=== PATIENT | female | born 1935 | race Caucasian/White ===

== ENCOUNTER → 2016-05-17 | Outpatient (CLI) | payer OTHER ==
--- NOTE | 2016-05-17 21:17 | DI ---
RIGHT HIP, 05/17/2016 1:26 PM: Clinical History: Right hip pain. Previous Exam: None at this facility. 2 views are submitted. There is no acute soft tissue, osseous, or joint abnormality. Reading: Normal right hip exam.
--- NOTE | 2016-05-17 21:17 | DI ---
AP PELVIS and LEFT HIP, 05/17/2016 1:26 PM: Clinical History: Left hip pain. Previous Exam: None at this facility. There is no soft tissue abnormality. The bony structures of the pelvis are normal. 2 views of the lef t hip are normal. Readin. Normal left hip exam. 2. The AP pelvis view is unremarkable.
--- NOTE | 2016-05-17 21:24 | DI ---
LUMBAR SPINE SERIES, 05/17/2016 1:26 PM: Clinical History: Bilateral low back pain without sciatica. Previous Exam: 01/07/2015. Upright AP and lateral views are submitted. The vertebral bodies are of normal height and size. The p atient is status post anterior and posterior fusions at L5-S1. There is a laminectomy at L5. The ante rior fusion is solid. Posterior fusion is performed with metallic struts transfixed with pedicle scre ws between L5 and S1. Severe disc space narrowing is present at L2-3 through L4-5. There is a grade 1 reverse spondylolisthesis at L3-4. The pedicles are normal. Arthritic changes are present in the apo physeal joints at L3-4 and L4-5. There is a lucency with sclerosis through the area of the pedicle of L3 on the lateral projection. A pars interarticularis defect that has developed since the last exam cannot be excluded. Degenerative changes are present in both sacroiliac joints. There is osteoporosis . The abdominal aorta is heavily calcified but has a normal caliber. Readin. Status post anterior and posterior fusions at L5-S1 with an L5 laminectomy. The anterior fusion i s solid. 2. Severe disc space narrowing from L2-3 through L4-5. 3. There is a grade 1 reverse spondylolisthesis at L3-4. A lucency is present in the region of the p ars interarticularis seen on the lateral view at the level of L3. This lucency is bounded by scleroti c margins in the bone and a pars defect at this level cannot be excluded. If further evaluation is re quired, consider a CT lumbar spine scan. 4. Osteoporosis.
== END ==
LOC: ORTHO 14:06
PROVIDERS: ATTEND Orthopaedic Surgery
DX: M25.552 Pain in left hip (principal); M25.551 Pain in right hip; M54.5 Low back pain; M48.06 Spinal stenosis, lumbar region; M43.16 Spondylolisthesis, lumbar region; Z98.1 Arthrodesis status
CPT/HCPCS: 72100; 73502

== ENCOUNTER → 2016-06-09 | Outpatient (CLI) | payer OTHER ==
[2016-06-09 13:31] LABS: HEMOGLOBIN A1C 6.77 % (4.2-6.0); MEAN BLOOD GLUCOSE (CALC) 139.441 mg/dL
== END ==
LOC: LAB 12:58
PROVIDERS: ATTEND Student in an Organized Health Care Education/Training Program
DX: E11.9 Type 2 diabetes mellitus without complications (principal)
CPT/HCPCS: 36415; 83036

== ENCOUNTER → 2016-06-14 | Outpatient (CLI) | payer OTHER | LOC: MMPC 09:00 | PROVIDERS: ATTEND Student in an Organized Health Care Education/Training Program | DX: E11.9 Type 2 diabetes mellitus without complications (principal) | CPT/HCPCS: 99212; G0463 ==

== ENCOUNTER → 2016-06-18 | Outpatient (CLI) | payer OTHER ==
--- NOTE | 2016-06-18 13:02 | DI ---
MRI LUMBAR SPINE SCAN WITHOUT IV CONTRAST, 06/18/2016 10:37 AM: Clinical History: Lumbar spondylosis. Previous Exam: 01/07/2015. Technique: Sagittal and axial T2 weighted; sagittal T1 weighted and T2 STIR; and axial PD. The vertebral bodies are of normal height and size. The patient is status post anterior and posterior fusions at L5-S1. Posterior fusions are accomplished with metallic struts transfixed with pedicle sc rews between L5 and S1. Severe disc space narrowing is present at L2-3 and L3-4 with a grade 1 revers e spondylolisthesis at L3-4. There is also moderate disc space narrowing at L4-5. The lumbar disc spa dante show desiccation change. The cord terminates at L1, and the conus medullaris is normal. The T9-10 and T10-11 disc spaces are normal. T11-12 has a circumferentially bulging but not herniated disc wit hout canal or neural foraminal stenosis. The T12-L1 disc space is normal. L1-2 has a mild circumferen tially bulging but not herniated disc without canal or neural foraminal stenosis. There is a more pro minent circumferentially bulging but not herniated disc without canal stenosis at L2-3 and there is m ild neural foraminal stenosis bilaterally but the nerve roots still exit appropriately. L3-4 has a gr derek 1 reverse spondylolisthesis with a circumferentially bulging but not herniated disc. There is lef t neural foraminal stenosis without canal or right neural foraminal stenosis. There is a 6 x 6 x 10 m m cyst arising from the right L4-5 apophyseal joint and this is causing displacement of the thecal sa c from right to left. This also has the potential to cause impingement on the right L4 nerve root bef ore it exits from the right L4-5 neural foramen. L4-5 has spinal canal stenosis secondary to a circum ferentially bulging but not herniated disc and hypertrophic changes of the apophyseal joints and liga mentum flavum, particularly on the right side. There is bilateral neural foraminal stenosis but the n erve still exit appropriately. L5-S1 shows no canal or neural foraminal stenosis. The in tear fusion appears solid. Readin. There is severe is bilateral canal stenosis at L4-5 secondary to hypertrophic changes of the apop hyseal joints and ligamentum flavum and a circumferentially bulging but not herniated disc. There is no significant neural foraminal stenosis. Immediately superior to the disc space is a right synovial cyst or ganglion arising from the right L4-5 apophyseal joint and this measures 6 x 6 x 10 mm. This c an potentially cause impingement on the right L4 nerve root before it enters into the right L4-5 neur al foramen. 2. There are bulging but not herniated discs without canal or significant neural foraminal stenosis at T11-12, L1-2, and L3-4. 3. Status post L5 laminectomy with anterior and posterior fusions at L5-S1. The anterior fusion appe ars solid. There is no canal or neural foraminal stenosis. 4. The T9-10, T10-11, and T12-L1 disc space are normal.
--- NOTE | 2016-06-18 13:57 | DI ---
LUMBAR SPINE SERIES, 06/18/2016 11:06 AM: Clinical History: Lumbar spondylosis. Previous Exam: 05/17/2016. Upright lateral flexion and extension views are submitted. The vertebral bodies are of normal height and size. The patient is status post anterior and posterior fusion at L5-S1. Posterior fusion is acco mplished with metallic struts transfixed with pedicle screws between L5 and S1. There is severe disc space narrowing at L2-3 through L4-5. There is a grade 1 reverse spondylolisthesis at L3-4 with scler osis at the respective endplates. No instability is noted with flexion and extension maneuvers. The a bdominal aorta is heavily calcified but has a normal caliber. Readin. Severe disc space narrowing is present from L2-3 through L4-5. Status post anterior and posterior fusions at L5-S1. 2. There is a grade 1 reverse spondylolisthesis at L3-4. No instability is noted with flexion and ex tension maneuvers.
== END ==
LOC: MRI 10:33
PROVIDERS: ATTEND Neurological Surgery
DX: M47.816 Spondylosis without myelopathy or radiculopathy, lumbar region (principal); M43.16 Spondylolisthesis, lumbar region; M51.36 Other intervertebral disc degeneration, lumbar region
CPT/HCPCS: 72100; 72148

== ENCOUNTER → 2016-08-30 | Outpatient (CLI) | payer OTHER ==
[2016-08-30 09:43] LABS: HEMOGLOBIN A1C 6.71 % (4.2-6.0)
[2016-08-30 16:12] LABS: CALCIUM 9.5 mg/dL (8.7-10.7); CHOL/HDL RATIO 3.06 RATIO (0-4.0); LDL CHOLESTEROL,CALCULATED 43.8 mg/dL; MAGNESIUM 1.6 mg/dL (1.6-2.4)
== END ==
LOC: LAB 09:01
PROVIDERS: ATTEND Student in an Organized Health Care Education/Training Program
DX: E11.9 Type 2 diabetes mellitus without complications (principal); E78.5 Hyperlipidemia, unspecified; I10 Essential (primary) hypertension; M81.0 Age-related osteoporosis without current pathological fracture
CPT/HCPCS: 36415; 80048; 80061; 83036; 83735; 84100

== ENCOUNTER → 2016-09-20 | Outpatient (CLI) | payer OTHER | LOC: MMPC 09:00 | PROVIDERS: ATTEND Student in an Organized Health Care Education/Training Program | DX: M81.0 Age-related osteoporosis without current pathological fracture (principal) | CPT/HCPCS: G0463; J0897 ==

== ENCOUNTER → 2016-09-21 | Outpatient (CLI) | payer OTHER ==
[2016-09-21 11:07] LABS: BASOPHILS # (AUTO) 0.04 10*3/UL; EOSINOPHILS # (AUTO) 0.32 10*3/UL; EOSINOPHILS % (AUTO) 7.8 % (0-8); HEMATOCRIT 41.7 % (37.0-47.0); HEMOGLOBIN 14.3 g/dL (12.0-16.0); LYMPHOCYTES # (AUTO) 1.16 10*3/uL; MEAN CORPUSCULAR HEMOGLOBIN 28.9 PG (27-31); MEAN CORPUSCULAR HGB CONC 34.3 g/dL (33-37); MEAN CORPUSCULAR VOLUME 84.4 FL (81-99); MEAN PLATELET VOLUME 9.7 FL (7.4-12.2); MONOCYTES # (AUTO) 0.61 10*3/UL (0.3-0.8); MONOCYTES % (AUTO) 14.9 % (5-15); NEUTROPHILS # (AUTO) 1.95 10*3/UL; NEUTROPHILS % (AUTO) 47.5 % (50-80); RED BLOOD COUNT 4.94 10^6/uL (4.20-5.40)
[2016-09-21 11:08] LABS: PLATELET MORPHOLOGY COMMENT NORMAL MORPHOLOGY (NORM); RBC MORPHOLOGY COMMENT NORMAL MORPHOLOGY (NORM); WBC MORPHOLOGY COMMENT NORMAL MORPHOLOGY (NORM)
--- NOTE | 2016-09-21 15:56 | EKG ---
[address] [address] Measurements Intervals [place] Rate: 81 P: 58 [place]: 168 QRS: 0 QRSD: 86 T: 22 QT: 358 QTc: 395 Interpretive Statements SINUS RHYTHM Compared to ECG 10/22/2014 17:37:43 No significant changes Electronically Signed On 09-22-16 07:39:56 MDT by Juliano Pickens MD [email or web address]
== END ==
LOC: LAB 10:45
PROVIDERS: ATTEND Orthopaedic Surgery
DX: M43.16 Spondylolisthesis, lumbar region (principal)
CPT/HCPCS: 36415; 85025; 85610; 85730; 87641; 93005; 93010

== ENCOUNTER → 2016-09-22 | Outpatient (CLI) | payer OTHER | LOC: MMPC 09:00 | DX: K12.2 Cellulitis and abscess of mouth (principal); I88.9 Nonspecific lymphadenitis, unspecified | CPT/HCPCS: 99212; G0463 ==

== ENCOUNTER → 2016-11-29 | Outpatient (CLI) | payer OTHER ==
[2016-11-29 10:22] LABS: HEMOGLOBIN A1C 6.84 % (4.2-6.0)
[2016-11-29 10:38] LABS: CALCIUM 9.4 mg/dL (8.7-10.7); MAGNESIUM 1.5 mg/dL (1.6-2.4)
== END ==
LOC: LAB 09:31
PROVIDERS: ATTEND Student in an Organized Health Care Education/Training Program
DX: E11.9 Type 2 diabetes mellitus without complications (principal)
CPT/HCPCS: 36415; 80048; 83036; 83735; 84100

== ENCOUNTER 2017-11-29 11:02 | Observation (INO) ==
[2017-11-29] MEDS ORDERED: fentaNYL Inj 100 MCG/2 ML VIAL IVP ONE (11:21)
[2017-11-29] MEDS ORDERED: ONDANSETRON 4 MG/2 ML VIAL IVP ONE (11:21)
[2017-11-29] MEDS ORDERED: Sodium Chloride 0.9% 1,000 ML PRIMARY IV ONE (11:22)
--- NOTE | 2017-11-29 11:23 | PDOC ---
Abdomen/Flank HPI - General Chief Complaint: Neck / Back Complaint Stated Complaint: LOW ABD/ HIP/ AND DOWN PAIN Date Seen by Provider: 11/29/17 Time Seen by Provider: 11:23 Source: POSITIVE: Patient Exam Limitations: POSITIVE: No limitations Nurse's Notes Reviewed & Considered: Yes - History of Present Illness Initial Comments: Patient is an 82-year-old female who presents to the emergency department with multiple complaints. 1 she has some chronic back pain with radiation and left hip. Reportedly has had back surgery in the past. She is also with Dr. Carmona. She is scheduled for an outpatient MRI for further characterization. Patient does have pain in the back. His chronic in nature. Somewhat worse last week or so. Dad said that she's been using acetaminophen as needed for pain. In addition she has developed abdominal discomfort. The been over the last 24 hours or so. Exacerbating factors. Has been associated with some nausea. Patient reports deep decreased flatus today. Denies diarrhea or constipation. No urinary symptoms. No fevers or chills. Body Location Affected: REPORTS: Head - Patient Home Medications Home Medications: Home Medications Lo-Dose Aspirin Ec 81 mg ORAL QD tab 04/22/11 Denosumab [Prolia] 60 mg SQ ONCE #1 11/09/11 Cholecalciferol (Vitamin D3) [Vitamin D3] 2,400 unit MC DAILY cap 04/27/12 Potassium Gluconate [Potassium] 99 mg PO DAILY unit 04/17/13 Multivit with Minerals/Lutein [Vision Plus Lutein Vitamin Tab] 1 ea PO DAILY tab 02/05/14 Acetaminophen [Tylenol] 1 tab PO BID tab 05/03/14 Simethicone [Gas-X] 125 mg PO BID PRN #60 cap 03/06/15 Loratadine [Claritin Tab] 1 tab PO DAILY #30 tab 06/03/15 Nitroglycerin 0.4 mg SL Q5M PRN PRN #30 tab.subl 06/03/15 Ranitidine HCl 75 mg PO DAILY #30 tab 06/03/15 Cider Vinegar [Apple Cider Vinegar] 600 mg PO DAILY tab 12/16/15 Magnesium Oxide 250 mg PO QD #30 tab 03/02/16 ibuprofen 200 mg tablet 400 mg PO Q4-6H PRN 02/28/17 metformin 1,000 mg tablet 1,000 mg PO BID #180 tab 04/04/17 metoprolol succinate ER 25 mg tablet,extended release 24 hr 1 tab PO DAILY #90 tab 08/03/17 amlodipine 10 mg tablet 10 mg PO QDAY #90 tab 08/30/17 rosuvastatin 5 mg tablet 5 mg PO QDAY #90 tab 08/30/17 gabapentin 300 mg capsule 300 mg PO TID #30 cap 10/25/17 hydrocodone 5 mg-acetaminophen 325 mg tablet 1 tab PO Q6-8H PRN #30 tab lisinopril 20 mg tablet 20 mg PO BID #180 tab 11/02/17 - Patient Allergies Allergies/Adverse Reactions: Allergies 3 Allergy/AdvReac Type Severity Reaction Status Date / Time propoxyphene napsylate Allergy Intermediate NAUSEA Verified 10/31/17 14:44 [From [facility]] Past Medical History - heen HEENT History: Glaucoma, Macular Degeneration, Cataracts, Hard of Hearing, Dentures/Partials Cardiovascular History: Hypertension, Hyperlipidemia Additional Cardiovasular History: HAD CARDIAC CATH THAT SHOWED NO OBSTRUCTION FOLLOWING EPISODE OF CHEST PAIN IN 03/2010. NEGATIVE LEXISCAN. (PER H&P) Respiratory History: Snoring Gastrointestinal History: GERD Additional Gastrointestinal History: HX OF ABDOMINAL PAIN/CONSTIPATION/ DIARRHEA. RECTAL BLEEDING Genitourinary History: Denies History Endocrine History: Type 2 Diabetes (oral) Musculoskeletal History: Arthritis, Back Pain, Limited ROM, Joint Pain Prosthesis or Implant: Yes (LOWER BACK 2 RODS, Left total shoulder) Additional Musculoskeletal History: SHOULDER PAIN Neurological History: Denies History Blood Disorders: Denies History Psychiatric History: Denies History History of Sexually Transmitted Diseases: No Cancer History: Denies History History of MDRO: No History of Other Communicable Diseases: No Alcohol Use: None In the Past 12 Months, Have Used or Abuse Any Substance: None Previous Surgical History: Yes Type / Date of Surgery: TOTAL LT SHOULDER (08/06/14)/APPY/BONNIE/COLONOSCOPY/ HYSTER WITH BSO X2/LEFT INGUINAL/LUMBAR FUSION/RIGHT KNEE SCOPE/BILAT RCT/SINUS SX/RIGHT KNEE SX/tonsillectomy Anesthesia Reactions: No Malignant Hyperthermia: No Significant Family History: Cancer, Diabetes, Hypertension Past Medical History Reviewed: Reviewed - No Changes ROS - Limitations ROS Limitations: No Limitations Constitution: DENIES: Chills, Fever Cardiovascular: REPORTS: Denies Cardiac Symptoms Respiratory: REPORTS: Denies Resp Symptoms Neurological: REPORTS: Denies Neuro Symptoms Gastrointestinal: REPORTS: Abdominal Pain, Nausea Endocrine: REPORTS: Denies Symptoms Musculoskeletal: REPORTS: Back Pain, Other (Left hip pain) Genitourinary: REPORTS: Denies Symptoms Eyes: REPORTS: Denies Symptoms ENT: REPORTS: Denies Symptoms Skin: REPORTS: Denies Skin Symptoms Lympathic: REPORTS: Denies Lympathic Symptoms Immunologic: POSITIVE: Denies Symptoms Psychiatric: POSITIVE: Denies Psych Symptoms Abdominal/Flank Pain PE - General Appearance General Appearance: POSITIVE: Alert, Cooperative, No Acute Distress - HEENT HEENT: POSITIVE: Head Inspection Nml, Eyes Inspection Nml, Ears Inspection Nml, Nose Inspection Nml - Neck Neck: POSITIVE: Normal Inspection - Respiratory Respiratory: POSITIVE: No Respiratory Distress, Breath Sounds Normal, Chest Non- Tender - Cardiovascular Cardiovascular: POSITIVE: Regular Rate and Rhythm, Heart Sounds Normal - Chest Chest: POSITIVE: Non Tender - Abdomen Additional Abdominal Details: There is some tenderness to palpation predominantly in the right lower quadrant no rebound or guarding. There is mild distention. Abdomen is tympanic to percussion. - Back Back: POSITIVE: Other (Mild tenderness to palpation of the back.) - Skin Skin: POSITIVE: Intact, Normal For Race, Warm, Dry - Extremities Additional Extremities Details: There is tenderness to palpation lateral aspect of the left hip. No gross deformity. Some mild pain with range of motion. - Neurological Neurological: POSITIVE: Affect Apporpriate, Oriented X3, Other (Strength and sensation equal in the lower extremities bilaterally. No focal deficit.) - Psychological Psychiatric: POSITIVE: Affect Appropriate Abdomen Progress - Results Reviewed by me Xrays/CTs/US Reviewed by me: Yes Lab Results Reviewed by Me: Yes CBC and BMP: 11/29/17 11:33 11/29/17 11:33 - Patient's Progress MDM / ED Course: Patient is an 82-year-old female who presents to the emergency department with abdominal pain and back pain. Differential diagnosis includes but is not limited to bowel obstruction, constipation, appendicitis, pyelonephritis, urinary tract infection. On examination she has no focal deficit in the lower extremities to suggest cord impingement. Her UA does not demonstrate infection. Laboratory studies demonstrate a mild glucose Abhinav of uncertain etiology. Patient's CT scan was obtained which showed straights no evidence of acute findings. An x-ray of her left hip was also obtained. Patient treated with fluids, pain medication, nausea medication. On reevaluation she was still uncomfortable to the point that she felt that she could not safely go home. I find no obvious etiology of her symptoms at this time I spoke with the hospitalist to admit patient for observation. Patient Care Time - Estimated PCT Patient Care Time (In Minutes): 40 Vital Signs - VS Reviewed Vital Signs Reviewed: Yes Discharge Clinical Impression: Acute exacerbation of chronic low back pain Abdominal pain Qualifiers: Abdominal location: right lower quadrant Qualified Code(s): R10.31 - Right lower quadrant pain Discharge Disposition: Admit to Observation Condition: Fair Follow Up With: MUSHTAQ FULLER [Primary Care Provider] - Date Decision to Admit to Inpatient: 11/29/17 Time Decision to Admit to Inpatient: 14:01
[2017-11-29 11:36] LABS: BASOPHILS # (AUTO) 0.03 10*3/UL; BASOPHILS % (AUTO) 0.7 % (0-1); EOSINOPHILS % (AUTO) 2.4 % (0-8); Hematocrit [HCT] 39.6 % (37.0-47.0); Hemoglobin [HGB] 13.7 g/dL (12.0-16.0); LYMPHOCYTES # (AUTO) 1.06 10*3/uL; MEAN CORPUSCULAR HEMOGLOBIN 26.6 PG (27-31); MEAN CORPUSCULAR HGB CONC 34.6 g/dL (33-37); MEAN CORPUSCULAR VOLUME 76.9 FL (81-99); MEAN PLATELET VOLUME 9.8 FL (7.4-12.2); MONOCYTES # (AUTO) 0.63 10*3/UL (0.3-0.8); NEUTROPHILS # (AUTO) 2.37 10*3/UL; NEUTROPHILS % (AUTO) 56.5 % (50-80); RED BLOOD COUNT 5.15 10^6/uL (4.20-5.40)
[2017-11-29] MEDS ORDERED: Sodium Chloride 0.9% 1,000 ML ONE (11:39)
[2017-11-29] MEDS ORDERED: ONDANSETRON 4 MG/2 ML VIAL ONE (11:39)
[2017-11-29] MEDS ORDERED: fentaNYL Inj 100 MCG/2 ML VIAL ONE (11:39)
[2017-11-29 11:45] LABS: BLOOD UREA NITROGEN 9 mg/dL (7-22); LIPASE 108 IU/L (23-300); SERUM ALBUMIN 4.5 g/dL (3.5-4.8)
[2017-11-29 11:47] LABS: PLATELET MORPHOLOGY COMMENT NORMAL MORPHOLOGY (NORM); RBC MORPHOLOGY COMMENT NORMAL MORPHOLOGY (NORM); WBC MORPHOLOGY COMMENT NORMAL MORPHOLOGY (NORM)
--- NOTE | 2017-11-29 12:54 | DI ---
AP PELVIS and LEFT HIP, 11/29/2017 11:22 AM: Clinical History: Left hip pain. Previous Exam: 12/13/2016. There is no soft tissue abnormality. The bony structures of the pelvis are normal. 2 views of the lef t hip show no acetabular over coverage. The femoral head is spherical without a dysplastic "bump". No fractures are identified. Readin. There is no fracture or dislocation. The joint spaces preserved. 2. The AP pelvis view is unremarkable.
--- NOTE | 2017-11-29 13:32 | DI ---
CT ABDOMEN SCAN WITH IV CONTRAST, 11/29/2017 11:21 AM : Clinical History: Abdominal pain. Previous Exam: 09/11/2015. Scans are performed from the lower lung bases through the liver and kidneys with IV contrast. 75 mL o f Isovue 300 was injected IV. No oral or rectal contrast was ordered. The lung bases are clear. The liver is normal. The gallbladder is grossly normal. There is no abnorma lity of the spleen, pancreas, and adrenal glands. Both kidneys are normal in size, shape, position an d contour. There is no hydronephrosis or hydroureter. No renal or ureteral calculi are present. There are no abnormal retrocrural or periaortic nodes. No ascites is present. READING: Normal CT abdomen scan. CT PELVIS SCAN WITH IV CONTRAST, 11/29/2017 11:21 AM: Clinical History: See above. Previous Exam: 09/11/2015. Scans are performed from just superior to the umbilicus to the symphysis pubis with IV contrast. This is the same bolus of contrast used for the CT scans of the abdomen. Scans through the lower abdomen and pelvis show no masses, enhancing lesions, or abnormal fluid colle ctions. There is no adenopathy. The appendix is not identified with certainty and may be surgically a bsent. There is no inflammatory mass either in the cecum or in the right lower quadrant. The small marbin wel, terminal ileum, and ileocecal valve are normal. The colon is also normal. There are no hernias. The patient is status post hysterectomy and bilateral salpingo-oophorectomy. READING: Normal CT scan of the pelvis with IV contrast.
[2017-11-29 13:42] LABS: BILIRUBIN,URINE NEGATIVE (NEG); CLARITY,URINE CLEAR (CLEAR); COLOR,URINE YELLOW (Y); GLUCOSE, URINE (UA) 100 mg/dL (NEG); OCCULT BLOOD,URINE NEGATIVE (NEG); PH,URINE 7.5 (5.0-8.5); PROTEIN,URINE NEGATIVE (NEG); UROBILINOGEN,URINE 0.2 EU/dL (0.2)
[2017-11-29 13:43] LABS: URINE SAMPLE TYPE CLEAN CATCH URINE
[2017-11-29] MEDS ORDERED: NITROGLYCERIN 0.4 MG SL TAB (BOTTLE OF 3) SL PRN (14:15)
[2017-11-29] MEDS ORDERED: LIDOCAINE W/ SODIUM BICARB 0.5 ML SYR SUBD PRN (14:15)
[2017-11-29] MEDS ORDERED: ONDANSETRON 4 MG/2 ML VIAL IVP PRN (14:15)
[2017-11-29 14:30] LABS: URINE SPECIFIC GRAVITY - MAN 1.024
--- NOTE | 2017-11-29 15:37 | PDOC ---
HPI - History of Present Illness History of Present Illness: Is a very nice 82-year-old female with the monks other things chronic back pain with some radiation to the left hip she had the back surgery with Dr. Carmona and was scheduled for an outpatient MRI of her back comes to the ER because of the last 2 or 3 days her pain has been debilitating with nausea and vomiting and unable to walk or move around. Her last stool was yesterday afternoon and CT scan abdomen and pelvis is unremarkable as well as UA. Past Medical History Medical History: Diabetes, hypertension, chronic back pain, atypical chest pain , hyperlipidemia, glaucoma, colon polyps, bilateral tinnitus, Surgical History: Appendectomy 1961, cataract extraction, cholecystectomy, colonoscopy in 2009 adenomatous polyp, hysterectomy in , laparoscopic cholecystectomy, left inguinal hernia, lumbar fusion, arthroscopickneesurgery on the right side, D&C x2, rotator cuff repair bilateral, sinus surgery, tonsillectomy, right knee surgery Family History: Reviewed an Not Pertinent Tobacco Use: Never Smoker In the Past 12 Months, Have Used or Abuse Any of the Following Substance: None Medication / Allergies Home Medications: Home Medications 3 Medication Instructions Recorded Confirmed Type Lo-Dose Aspirin Ec 81 mg ORAL QD tab 04/22/11 11/29/17 History Denosumab [Prolia] 60 mg SQ ONCE #1 11/09/11 11/29/17 History Cholecalciferol (Vitamin D3) 2,400 unit MC DAILY cap 04/27/12 11/29/17 History [Vitamin D3] Potassium Gluconate [Potassium] 99 mg PO DAILY unit 04/17/13 11/29/17 History Multivit with Minerals/Lutein 1 ea PO DAILY tab 02/05/14 11/29/17 History [Vision Plus Lutein Vitamin Tab] Acetaminophen [Tylenol] 1 tab PO BID tab 05/03/14 11/29/17 History Simethicone [Gas-X] 125 mg PO BID PRN #60 cap 03/06/15 11/29/17 History Loratadine [Claritin Tab] 1 tab PO DAILY #30 tab 06/03/15 11/29/17 History Nitroglycerin 0.4 mg SL Q5M PRN PRN #30 tab.subl 06/03/15 11/29/17 History Ranitidine HCl 75 mg PO DAILY #30 tab 06/03/15 11/29/17 History Cider Vinegar [Apple Cider Vinegar] 600 mg PO DAILY tab 12/16/15 11/29/17 History Magnesium Oxide 250 mg PO QD #30 tab 03/02/16 11/29/17 History ibuprofen 200 mg tablet 400 mg PO Q4-6H PRN 02/28/17 11/29/17 History metformin 1,000 mg tablet 1,000 mg PO BID #180 tab 04/04/17 11/29/17 Rx metoprolol succinate ER 25 mg 1 tab PO DAILY #90 tab 08/03/17 11/29/17 Rx tablet,extended release 24 hr amlodipine 10 mg tablet 10 mg PO QDAY #90 tab 08/30/17 11/29/17 Rx rosuvastatin 5 mg tablet 5 mg PO QDAY #90 tab 08/30/17 11/29/17 Rx gabapentin 300 mg capsule 300 mg PO TID #30 cap 10/25/17 11/29/17 Rx hydrocodone 5 mg-acetaminophen 325 1 tab PO Q6-8H PRN #30 tab 10/31/17 11/29/17 Rx mg tablet lisinopril 20 mg tablet 20 mg PO BID #180 tab 11/02/17 11/29/17 Rx Allergies/Adverse Reactions: Allergies 3 Allergy/AdvReac Type Severity Reaction Status Date / Time propoxyphene napsylate Allergy Intermediate NAUSEA Verified 11/29/17 14:35 [From [facility]] Review of Systems - Review of Systems All Systems: Reviewed & No Additional Complaints Except as Stated - Cardiovascular Cardiovascular: DENIES: Negative System Review, Chest Pain, Edema, Syncope, Palpitations, Orthopnea, Paroxysmal Nocturnal Dyspnea, Other, See HPI - Gastrointestinal Gastrointestinal / Abdominal: REPORTS: Nausea, Vomiting - Musculoskeletal Musculoskeletal: REPORTS: Back Pain, Joint Pain - Hips Exam - Vitals Vital Signs: Vital Signs Temperature 97.7 F Temperature Source Temporal Artery Scan Pulse Rate [Pulse Oximeter 77 Bilateral Radial] Respiratory Rate 18 Blood Pressure [Left Arm] 189/111 Pulse Ox 82 Oxygen Flow Rate 3 Oxygen Delivery Method Nasal Cannula Height 5 ft 2 in Weight 150 lb - General General Appearance: No Acute Distress, Cooperative - Eye Eye Exam: POSITIVE: Normal Appearance, PERRL, EOMI, No Scleral Icterus - Neck Neck Exam: Normal Inspection, Full ROM, No Tenderness, No Lymphadenopathy, No Thyromegaly, JVP is not Raised - Respiratory Respiratory Exam: POSITIVE: Clear to Auscultation - Bilaterally, Breathing Non Labored, Normal To Percussion, Normal to Percussion and Palpation - Cardiovascular Cardiovascular Exam: POSITIVE: RRR, No Murmur, No Clicks, No Gallops, No Rubs, PMI Non-Displaced - GI/Abdominal GI/Abdominal Exam: POSITIVE: Non Tender, Non Distended, Soft - Extremities Extremities Exam: POSITIVE: No Clubbing Present, No Edema Present, No Cyanosis Present Additional Extremities Exam Details: Left hip is somewhat painful when I push on it more as a posteriorly pain on the right hip - Back Back Exam: NEGATIVE: CVA Tenderness (L), CVA Tenderness (R) - Neurological Neurological Exam: POSITIVE: Alert, Oriented x 3, No Facial Droop, Speech Intact / Clear Results - Labs CBC and BMP: 11/29/17 11:33 11/29/17 11:33 Assessment and Plan - Patient Problems (1) Abdominal pain Current Visit: Yes Status: Acute Comment: I believe this is all referred pain from her back I will order an MRI of her lumbar spine and x-ray of her left hip will treat the pain with IV morphine will keep patient with clear liquids. Code(s): R10.9 - Unspecified abdominal pain Qualifiers: Abdominal location: right lower quadrant Qualified Code(s): R10.31 - Right lower quadrant pain (2) Acute exacerbation of chronic low back pain Current Visit: Yes Status: Acute Code(s): M54.5 - Low back pain; G89.29 - Other chronic pain
[2017-11-29] MEDS: HYDROcodone-APAP 5 MG -325 MG TABLET PO PRN ×2 (15:43→20:48)
[2017-11-29] MEDS: MORPHINE SULFATE 2 MG/1 ML IVP PRN (15:44)
[2017-11-29] MEDS: GABAPENTIN 300 MG CAPSULE PO SCH ×2 (15:44→20:49)
[2017-11-29] MEDS: ASPIRIN EC 81 MG TABLET PO SCH (15:44)
[2017-11-29] MEDS ORDERED: LIDOCAINE HCL 2 % 10 ML JELLY URO-JECT TOPICAL PRN (15:47)
--- NOTE | 2017-11-29 17:49 | DI ---
MRI LUMBAR SPINE SCAN WITHOUT IV CONTRAST, 11/29/2017 3:41 PM: Clinical History: Debilitating back pain. Previous fusion. Previous Exam: 06/18/2016. Technique: Sagittal and axial T2 weighted; sagittal T1 weighted and T2 STIR; and axial PD. The patient is status post anterior and posterior fusions at L2-3 through L5-S1 and laminectomies bet ween L2 and S1. Posterior fusions are performed with metallic struts transfixed with pedicle screws b etween L2 and L5. There is disc space narrowing at L1-2. Abnormally increased signal intensity is pre sent in all of L1 and the upper half of L2 indicating bone edema. There is a fracture off of the ante rior and inferior margin of L2 and there probably is motion at this level. The cord terminates at L1. The conus medullaris is normal. The disc spaces at T9-10 and T10-11 are normal. T11-12 and T12-L1 mcclendon ve circumferentially bulging but not herniated discs without canal or neural foraminal stenosis. L1-2 has a focal left anterior disc herniation that has migrated superiorly behind the body of L1. It is not associated with spinal canal stenosis with a disc fragment resides. There is spinal canal stenosi s at L1-2 secondary to hypertrophic changes of the apophyseal joints and ligamentum flavum and the re mainder of the disc that is bulging. There is no neural foraminal stenosis. L2-3 through L5-S1 show n o neural foraminal stenoses or canal stenosis. There is no clumping of the nerve roots to indicate ar achnoiditis. Although the anterior fusion level show loss of epidural fat anteriorly. These changes m ost likely are secondary to scar tissue formation but without IV contrast, this cannot be an absolute diagnosis. Readin. There is a fracture through the anterior and inferior margin of the body of L1 and there is edema throughout the entire body of L1 in the upper half of L2. These findings suggest there is motion at this level. There is also a left-sided focal disc fragment from L1 to that has migrated superiorly be hind the body of L1 and there is no canal stenosis with a disc fragment is situated. There is spinal canal stenosis at the L1-2 disc secondary to hypertrophic changes of the apophyseal joints and ligame ntum flavum as well as bulging of the remaining portions of the L1-2 disc. There is no neural foramin al stenosis. 2. Status post laminectomies from L2-S1 with anterior and posterior fusions from L2-3 through L5-S1. These levels show no canal or neural foraminal stenosis. There is no evidence of arachnoiditis.
--- NOTE | 2017-11-29 17:52 | DI ---
AP PELVIS and BILATERAL HIPS, 11/29/2017 3:42 PM : Clinical History: Hip pain. Previous Exam: AP pelvis and left hip from 11/19/2017. There is no soft tissue abnormality. The bony structures of the pelvis are normal. 2 views of each hi p are normal and show no evidence of femoroacetabular impingement. Reading: Normal AP pelvis and bilateral hip exam.
[2017-11-29] MEDS: LISINOPRIL 20 MG TABLET PO SCH (20:49)
[2017-11-30] MEDS: HYDROcodone-APAP 5 MG -325 MG TABLET PO PRN ×3 (04:12→16:25)
[2017-11-30 04:29] LABS: BASOPHILS # (AUTO) 0.03 10*3/UL; BASOPHILS % (AUTO) 0.5 % (0-1); EOSINOPHILS # (AUTO) 0.13 10*3/UL; EOSINOPHILS % (AUTO) 2.4 % (0-8); Hemoglobin [HGB] 12.4 g/dL (12.0-16.0); LYMPHOCYTES # (AUTO) 1.09 10*3/uL; MEAN CORPUSCULAR HEMOGLOBIN 26.3 PG (27-31); MEAN CORPUSCULAR HGB CONC 33.5 g/dL (33-37); MEAN CORPUSCULAR VOLUME 78.6 FL (81-99); MEAN PLATELET VOLUME 9.7 FL (7.4-12.2); MONOCYTES # (AUTO) 0.76 10*3/UL (0.3-0.8); MONOCYTES % (AUTO) 13.9 % (5-15); NEUTROPHILS # (AUTO) 3.44 10*3/UL; NEUTROPHILS % (AUTO) 62.9 % (50-80); RED BLOOD COUNT 4.71 10^6/uL (4.20-5.40)
[2017-11-30 04:40] LABS: BLOOD UREA NITROGEN 6 mg/dL (7-22); SERUM ALBUMIN 3.4 g/dL (3.5-4.8)
[2017-11-30 04:47] LABS: PLATELET MORPHOLOGY COMMENT NORMAL MORPHOLOGY (NORM); RBC MORPHOLOGY COMMENT NORMAL MORPHOLOGY (NORM); WBC MORPHOLOGY COMMENT NORMAL MORPHOLOGY (NORM)
[2017-11-30] MEDS ORDERED: Magnesium Sulfate 2gm (Premix) 2 GM/50 ML BAG IV ONE (08:32)
[2017-11-30] MEDS ORDERED: LORATADINE 10 MG TABLET PO SCH (09:00)
[2017-11-30] MEDS ORDERED: METOPROLOL SUCCINATE 25 MG SR 24H TABLET PO SCH (09:00)
[2017-11-30] MEDS ORDERED: CHOLECALCIFEROL MC SCH (09:00)
[2017-11-30] MEDS ORDERED: CHOLECALCIFEROL 1000 IU TABLET PO SCH (09:00)
[2017-11-30 09:12] VITALS: RESP 12; TEMP 96.8; O2SAT 92
[2017-11-30] MEDS: ASPIRIN EC 81 MG TABLET PO SCH (09:35)
[2017-11-30] MEDS: LISINOPRIL 20 MG TABLET PO SCH (09:35)
[2017-11-30] MEDS: GABAPENTIN 300 MG CAPSULE PO SCH ×2 (09:35→14:57)
[2017-11-30 12:48] VITALS: BP 132/63
[2017-11-30] MEDS: MORPHINE SULFATE 2 MG/1 ML IVP PRN (14:11)
--- NOTE | 2017-11-30 15:00 | DCSUMMARY ---
Hospitalization Summary Admit Date: 11/29/2017 Discharge Date: 11/30/17 Primary Diagnosis:: L1 fracture Hospital Course: This is an 82 YO female that presented with back and left hip pain. She was admitted, and the pain was exacerbated by any movement. A Trammell catheter had to be inserted. She denied any urinary or bowel incontinence. Extensive workup was done in terms of imaging with CT scan of the abdomen and pelvis, x- rays of the hip and x-rays of the pelvis that were all negative. An MRI scan was done of the lumbar spine and an L1 fracture was noted with a migratory pes as well as edema at L1 and L2. There was evidence of her prior fusions. Given the L1 fracture and fracturing above the level of her prior fusion, I spoke with Dr. Carmona's partner in [place], Dr. Garcia and he suggested a TLSO brace. We do not have the capability of doing that here so I'm sending the patient to [place] for further evaluation by Dr. Garcia and the hospitalist service there. I greatly appreciate their efforts to assist this patient with her situation. The patient is more than willing to go to [place]. She still complains of back pain. She states it hurts even just to move or roll over. The pain medications such as morphine have been helping. During the hospital stay, the patient had no problems with acute exacerbations of her chronic medical issues. She denies any chest pain or shortness breath. Assessment and Plan: 1. As per discharge assessments noted 2. Disposition: Patient is discharged to [facility] 3. Condition on discharge, stable and improved. 4. Diet: regular diet 5. Activities: As per [facility] 6. Follow-Up: 1. See primary provider in one week post discharge 2. 7. Medications at the Time of Discharge: 8. Time, care, counseling and coordination of care for this discharge is greater than 30 minutes. Exam - Vitals Vital Signs: Vital Signs Temperature 96.8 F Temperature Source Temporal Artery Scan Pulse Rate [Pulse Oximeter] 78 Pulse Rate [Pulse Oximeter 83 Bilateral Radial] Respiratory Rate 12 Blood Pressure [Right Arm] 126/70 Blood Pressure [Left Arm] 132/63 Pulse Ox 92 Oxygen Flow Rate 1 Oxygen Delivery Method Nasal Cannula Height 5 ft 2 in Weight 150 lb - General General Appearance: No Acute Distress, Cooperative - Head Head Exam: Normal Inspection, Normocephalic, Atraumatic - Eye Eye Exam: POSITIVE: No Scleral Icterus - ENT ENT Exam: POSITIVE: Mucous Membranes Moist - Respiratory Respiratory Exam: POSITIVE: Clear to Auscultation - Bilaterally, Breathing Non Labored - Cardiovascular Cardiovascular Exam: POSITIVE: RRR, No Murmur, No Clicks, No Gallops, No Rubs, No JVD - GI/Abdominal GI/Abdominal Exam: POSITIVE: Normal Bowel Sounds, Non Tender, Non Distended, Soft - Extremities Extremities Exam: POSITIVE: No Clubbing Present, No Edema Present, No Cyanosis Present - Neurological Neurological Exam: POSITIVE: Alert, Oriented x 3, No Facial Droop, Speech Intact / Clear, Moves All Extremities Equally - Psychiatric Psychiatric Exam: POSITIVE: Normal Affect, Normal Mood Data Peritnent Studies: Laboratory Results 11/29/17 11/30/17 11/30/17 Range/Units 14:15 04:17 04:17 WBC 5.47 (4.8-10.8) 10^3/uL RBC 4.71 (4.20-5.40) 10^6/uL Hgb 12.4 (12.0-16.0) g/dL Hct 37.0 (37.0-47.0) % MCV 78.6 L (81-99) FL MCH 26.3 L (27-31) PG MCHC 33.5 (33-37) g/dL RDW Std Deviation 42.0 (39-50) fL RDW Coeff of Balbir 14.9 H (11.5-14.5) % Plt Count 243 (140-350) 10*3/uL MPV 9.7 (7.4-12.2) FL Immature Gran % (Auto) 0.4 (0-5) % Neut % (Auto) 62.9 (50-80) % Lymph % (Auto) 19.9 (10-50) % [place] % (Auto) 13.9 (5-15) % Eos % (Auto) 2.4 (0-8) % Baso % (Auto) 0.5 (0-1) % Immature Gran # (Auto) 0.02 10*3/UL Neut # (Auto) 3.44 10*3/UL Lymph # (Auto) 1.09 10*3/uL [place] # (Auto) 0.76 (0.3-0.8) 10*3/UL Eos # (Auto) 0.13 10*3/UL Baso # (Auto) 0.03 10*3/UL WBC Morphology Comment Normal morphology (NORM) Plt Morphology Comment Normal morphology (NORM) RBC Morph Comment Normal morphology (NORM) Sodium 137 (135-145) meq/L Potassium 3.9 (3.8-5.2) meq/L Chloride 107 (98-112) meq/L Carbon Dioxide 23 (23-33) meq/L Anion Gap 7 (5-20) BUN 6 L (7-22) mg/dL Creatinine 0.4 L (0.50-1.20) mg/dL Estimated GFR Manager [facility] BUN/Creatinine Ratio 15.00 (6-20) Glucose 126 H (78-110) mg/dL Calculated Osmolality 283.0 (267-292) mOsm/kg Calcium 8.7 (8.7-10.7) mg/dL Magnesium 1.5 L (1.6-2.4) mg/dL Total Bilirubin 0.3 (0.3-1.2) mg/dL AST 19 (8-39) IU/L ALT 27 (9-52) IU/L Alkaline Phosphatase 60 (38-126) IU/L Total Protein 5.7 L (6.1-8.0) g/dL Albumin 3.4 L (3.5-4.8) g/dL Globulin 2.3 L (2.50-4.10) g/dL Albumin/Globulin Ratio 1.40 (1.3-2.0) mg/g Procedures: [address] [facility] [place] [address] PH: DD: [phone] FAX: [phone] ~DIAGNOSTIC IMAGING REPORT~ Patient: SHAHAB WEAVER : 1935 Sex: F Age: 82 Exam Name: MRI Lumbar Spine WO Contrast Exam Date: 11/29/17 Report # : [id number] CPT Code: 37753 EMR/MR #: [id number] Ordering: EDINSON HUSSEIN Admiting: EDINSON HUSSEIN MD. Primary: Dilip Das MD Attending: EDINSON HUSSEIN MD. Signed MRI LUMBAR SPINE SCAN WITHOUT IV CONTRAST, 11/29/2017 3:41 PM: Clinical History: Debilitating back pain. Previous fusion. Previous Exam: 06/18/2016. Technique: Sagittal and axial T2 weighted; sagittal T1 weighted and T2 STIR; and axial PD. The patient is status post anterior and posterior fusions at L2-3 through L5-S1 and laminectomies between L2 and S1. Posterior fusions are performed with metallic struts transfixed with pedicle screws between L2 and L5. There is disc space narrowing at L1-2. Abnormally increased signal intensity is present in all of L1 and the upper half of L2 indicating bone edema. There is a fracture off of the anterior and inferior margin of L2 and there probably is motion at this level. The cord terminates at L1. The conus medullaris is normal. The disc spaces at T9-10 and T10-11 are normal. T11-12 and T12-L1 have circumferentially bulging but not herniated discs without canal or neural foraminal stenosis. L1- 2 has a focal left anterior disc herniation that has migrated superiorly behind the body of L1. It is not associated with spinal canal stenosis with a disc fragment resides. There is spinal canal stenosis at L1-2 secondary to hypertrophic changes of the apophyseal joints and ligamentum flavum and the remainder of the disc that is bulging. There is no neural foraminal stenosis. L2 -3 through L5-S1 show no neural foraminal stenoses or canal stenosis. There is no clumping of the nerve roots to indicate arachnoiditis. Although the anterior fusion level show loss of epidural fat anteriorly. These changes most likely are secondary to scar tissue formation but without IV contrast, this cannot be an absolute diagnosis. Readin. There is a fracture through the anterior and inferior margin of the body of L1 and there is edema throughout the entire body of L1 in the upper half of L2. These findings suggest there is motion at this level. There is also a left- sided focal disc fragment from L1 to that has migrated superiorly behind the body of L1 and there is no canal stenosis with a disc fragment is situated. There is spinal canal stenosis at the L1-2 disc secondary to hypertrophic changes of the apophyseal joints and ligamentum flavum as well as bulging of the remaining portions of the L1-2 disc. There is no neural foraminal stenosis. 2. Status post laminectomies from L2-S1 with anterior and posterior fusions from L2-3 through L5-S1. These levels show no canal or neural foraminal stenosis. There is no evidence of arachnoiditis. Dictated By: 11/29/17 1738 FRANCISCO HERBERT MD. Signed By: 11/29/17 1746 FRANCISCO HERBERT MD. [address] [facility] [place] [address] PH: DD: [phone] FAX: [phone] ~DIAGNOSTIC IMAGING REPORT~ Patient: SHAHAB WEAVER : 1935 Sex: F Age: 82 Exam Name: CT Abdomen/Pelvis W Contrast Exam Date: 11/29/17 Report # : [id number] CPT Code: 06325 EMR/MR #: [id number] Ordering: Stanislaw Walker Admiting: Primary: Dilip Das MD Attending: Signed CT ABDOMEN SCAN WITH IV CONTRAST, 11/29/2017 11:21 AM : Clinical History: Abdominal pain. Previous Exam: 09/11/2015. Scans are performed from the lower lung bases through the liver and kidneys with IV contrast. 75 mL of Isovue 300 was injected IV. No oral or rectal contrast was ordered. The lung bases are clear. The liver is normal. The gallbladder is grossly normal. There is no abnormality of the spleen, pancreas, and adrenal glands. Both kidneys are normal in size, shape, position and contour. There is no hydronephrosis or hydroureter. No renal or ureteral calculi are present. There are no abnormal retrocrural or periaortic nodes. No ascites is present. READING: Normal CT abdomen scan. CT PELVIS SCAN WITH IV CONTRAST, 11/29/2017 11:21 AM: Clinical History: See above. Previous Exam: 09/11/2015. Scans are performed from just superior to the umbilicus to the symphysis pubis with IV contrast. This is the same bolus of contrast used for the CT scans of the abdomen. Scans through the lower abdomen and pelvis show no masses, enhancing lesions, or abnormal fluid collections. There is no adenopathy. The appendix is not identified with certainty and may be surgically absent. There is no inflammatory mass either in the cecum or in the right lower quadrant. The small bowel, terminal ileum, and ileocecal valve are normal. The colon is also normal. There are no hernias. The patient is status post hysterectomy and bilateral salpingo-oophorectomy. READING: Normal CT scan of the pelvis with IV contrast. Dictated By: 11/29/17 1324 FRANCISCO HERBERT MD. Signed By: 11/29/17 1332 FRANCISCO HERBERT MD. Patient Problems - Patient Problem List (1) Closed L1 vertebral fracture Current Visit: Yes Status: Acute Code(s): S32.019A - Unspecified fracture of first lumbar vertebra, initial encounter for closed fracture Qualifiers: Encounter type: initial encounter Fracture morphology: other fracture Qualified Code(s): S32.018A - Other fracture of first lumbar vertebra, initial encounter for closed fracture Category: Medical (2) Macular degeneration Current Visit: No Status: Chronic Code(s): H35.30 - Unspecified macular degeneration Qualifiers: Macular degeneration type: unspecified type Eye laterality: unspecified Qualified Code(s): H35.30 - Unspecified macular degeneration Category: Medical (3) Hyperlipidemia Current Visit: Yes Status: Chronic Onset Date: 08/03/11 Code(s): E78.5 - Hyperlipidemia, unspecified Qualifiers: Hyperlipidemia type: pure hypercholesterolemia Qualified Code(s): E78.00 - Pure hypercholesterolemia, unspecified; E78.0 - Pure hypercholesterolemia Category: Medical (4) Essential hypertension Current Visit: Yes Status: Chronic Onset Date: 03/17/12 Code(s): I10 - Essential (primary) hypertension Category: Medical (5) GERD (gastroesophageal reflux disease) Current Visit: Yes Status: Chronic Code(s): K21.9 - Gastro-esophageal reflux disease without esophagitis Category: Medical
== END 2017-11-30 16:32 | disposition short-term general hospital (02) ==
LOC: ER 11:02 → MED/SURG 11:02
PROVIDERS: ADMIT Internal Medicine; ATTEND Internal Medicine

== ENCOUNTER 2018-01-05 12:13 | Observation (INO) ==
[2018-01-05] MEDS ORDERED: Sodium Chloride 0.9% 1,000 ML PRIMARY IV ONE (12:21)
[2018-01-05 12:46] LABS: BASOPHILS # (AUTO) 0.02 10*3/UL; BASOPHILS % (AUTO) 0.3 % (0-1); EOSINOPHILS # (AUTO) 0.06 10*3/UL; EOSINOPHILS % (AUTO) 0.8 % (0-8); Hematocrit [HCT] 41.5 % (37.0-47.0); LYMPHOCYTES # (AUTO) 1.14 10*3/uL; MEAN CORPUSCULAR HEMOGLOBIN 26.5 PG (27-31); MEAN CORPUSCULAR HGB CONC 33.7 g/dL (33-37); MEAN CORPUSCULAR VOLUME 78.4 FL (81-99); MEAN PLATELET VOLUME 9.8 FL (7.4-12.2); MONOCYTES # (AUTO) 0.42 10*3/UL (0.3-0.8); MONOCYTES % (AUTO) 5.3 % (5-15); NEUTROPHILS # (AUTO) 6.29 10*3/UL; PLATELET MORPHOLOGY COMMENT NORMAL MORPHOLOGY (NORM); RBC MORPHOLOGY COMMENT NORMAL MORPHOLOGY (NORM); RED BLOOD COUNT 5.29 10^6/uL (4.20-5.40); WBC MORPHOLOGY COMMENT NORMAL MORPHOLOGY (NORM)
[2018-01-05] MEDS ORDERED: PANTOPRAZOLE IV 40 MG VIAL IVP ONE ×2 (12:46→18:27)
--- NOTE | 2018-01-05 12:46 | EKG ---
[address] [address] Measurements Intervals [place] Rate: 78 P: 85 AK: 193 QRS: -11 QRSD: 86 T: 19 QT: 369 QTc: 402 Interpretive Statements SINUS RHYTHM Compared to ECG 09/21/2016 10:57:17 No significant changes Electronically Signed On 01-06-18 10:30:37 MDT by Joshua Sanchez [email or web address]
--- NOTE | 2018-01-05 12:47 | PDOC ---
Nausea/Vomiting/Diarrhea HPI - General Chief Complaint: Nausea / Vomiting / Diarrhea Stated Complaint: nausea with pain meds Date Seen by Provider: 01/05/18 Time Seen by Provider: 12:30 Source: POSITIVE: Patient Exam Limitations: POSITIVE: No limitations Nurse's Notes Reviewed & Considered: Yes - History of Present Illness Initial Comments: The patient is an 82-year-old female who is brought to the emergency department from the clinic with complaints of nausea and vomiting. She was seen here in the emergency department yesterday with complaints of worsening low back pain. She has had 2 previous lumbar surgeries and is actually scheduled for a lumbar surgery per Dr. Carmona in [place] in early January. She had x-rays of her lumbar spine which showed no evidence of acute fracture. She was placed on hydrocodone. She took a dose last night and then again this morning at about 6 AM. Starting at about 9 AM she developed increased nausea and vomiting. She had presented to the clinic where they gave her Zofran however she continued to have nausea and vomiting and therefore was brought here to the emergency department. She states that she does have some pain that radiates from her lower back into the lower abdomen. She also has some pain in the epigastric region. She also states that her abdomen feels more bloated than usual. She denies any urinary symptoms or change in bowel movements. Her last bowel movement was yesterday afternoon and was normal. She has had previous cholecystectomy, appendectomy, hysterectomy and previous hernia repair. She has taken hydrocodone in the past without any problems with nausea or vomiting. Been taking increased amounts of ibuprofen recently secondary to her increased lower back pain. - Patient Home Medications Home Medications: Home Medications Lo-Dose Aspirin Ec 81 mg ORAL QD tab 04/22/11 Denosumab [Prolia] 60 mg SQ ONCE #1 11/09/11 Cholecalciferol (Vitamin D3) [Vitamin D3] 2,400 unit MC DAILY cap 04/27/12 Potassium Gluconate [Potassium] 99 mg PO DAILY unit 04/17/13 Multivit with Minerals/Lutein [Vision Plus Lutein Vitamin Tab] 1 ea PO DAILY tab 02/05/14 Acetaminophen [Tylenol] 1 tab PO BID tab 05/03/14 Simethicone [Gas-X] 125 mg PO BID PRN #60 cap 03/06/15 Loratadine [Claritin Tab] 1 tab PO DAILY #30 tab 06/03/15 Nitroglycerin 0.4 mg SL Q5M PRN PRN #30 tab.subl 06/03/15 Ranitidine HCl 75 mg PO DAILY #30 tab 06/03/15 Cider Vinegar [Apple Cider Vinegar] 600 mg PO DAILY tab 12/16/15 Magnesium Oxide 250 mg PO QD #30 tab 03/02/16 ibuprofen 200 mg tablet 400 mg PO Q4-6H PRN 02/28/17 metformin 1,000 mg tablet 1,000 mg PO BID #180 tab 04/04/17 metoprolol succinate ER 25 mg tablet,extended release 24 hr 1 tab PO DAILY #90 tab 08/03/17 amlodipine 10 mg tablet 10 mg PO QDAY #90 tab 08/30/17 rosuvastatin 5 mg tablet 5 mg PO QDAY #90 tab 08/30/17 gabapentin 300 mg capsule 300 mg PO TID #30 cap 10/25/17 hydrocodone 5 mg-acetaminophen 325 mg tablet 1 tab PO Q6-8H PRN #30 tab lisinopril 20 mg tablet 20 mg PO BID #180 tab 11/02/17 - Patient Allergies Allergies/Adverse Reactions: Allergies 3 Allergy/AdvReac Type Severity Reaction Status Date / Time propoxyphene napsylate Allergy Intermediate NAUSEA Verified 01/05/18 12:14 [From [facility]] Past Medical History - heen HEENT History: Glaucoma, Macular Degeneration, Cataracts, Hard of Hearing, Dentures/Partials Additional HEENT History: full upper and lower Cardiovascular History: Hypertension, Hyperlipidemia Additional Cardiovasular History: HAD CARDIAC CATH THAT SHOWED NO OBSTRUCTION FOLLOWING EPISODE OF CHEST PAIN IN 03/2010. NEGATIVE LEXISCAN. (PER H&P) Respiratory History: Snoring Gastrointestinal History: GERD Additional Gastrointestinal History: HX OF ABDOMINAL PAIN/CONSTIPATION/ DIARRHEA. RECTAL BLEEDING Genitourinary History: Denies History Endocrine History: Type 2 Diabetes (oral) Musculoskeletal History: Arthritis, Back Pain, Limited ROM, Joint Pain Prosthesis or Implant: Yes (LOWER BACK 2 RODS, Left total shoulder) Additional Musculoskeletal History: SHOULDER PAIN Neurological History: Denies History Blood Disorders: Denies History Psychiatric History: Denies History History of Sexually Transmitted Diseases: No Female Reproductive History: Hysterectomy LMP: ? Cancer History: Denies History In Past Year Been Physically Harmed or Verbally Threatened: No History of MDRO: No History of Other Communicable Diseases: No Tobacco Use: Never Smoker Alcohol Use: None In the Past 12 Months, Have Used or Abuse Any Substance: None Previous Surgical History: Yes Type / Date of Surgery: TOTAL LT SHOULDER (08/06/14)/APPY/BONNIE/COLONOSCOPY/ HYSTER WITH BSO X2/LEFT INGUINAL/LUMBAR FUSION/RIGHT KNEE SCOPE/BILAT RCT/SINUS SX/RIGHT KNEE SX/tonsillectomy Anesthesia Reactions: No Malignant Hyperthermia: No Significant Family History: Cancer, Diabetes, Hypertension Past Medical History Reviewed: Reviewed - No Changes ROS - Limitations ROS Limitations: No Limitations Constitution: DENIES: Chills, Fever Cardiovascular: DENIES: Chest Pain Respiratory: DENIES: Shortness Of Breath Neurological: REPORTS: Denies Neuro Symptoms Gastrointestinal: REPORTS: Abdominal Pain, Nausea, Vomitting. DENIES: Diarrhea , Black Stools, Bloody Stools Musculoskeletal: REPORTS: Back Pain Genitourinary: DENIES: Dysuria, Hematuria, Difficulty Urinating Eyes: REPORTS: Denies Symptoms ENT: REPORTS: Denies Symptoms Skin: DENIES: Rash Nausea/Vomiting/Diarrhea Exam - General Appearance General Appearance: POSITIVE: Alert, Cooperative, No Acute Distress - HEENT HEENT: POSITIVE: Head Inspection Nml, Eyes Inspection Nml, Ears Inspection Nml, Nose Inspection Nml, Pharynx Inspect. Nml - Neck Neck: POSITIVE: Supple. NEGATIVE: Lymphadenopathy - Respiratory Respiratory: POSITIVE: No Respiratory Distress, Breath Sounds Normal - Cardiovascular Cardiovascular: POSITIVE: Regular Rate and Rhythm, Heart Sounds Normal Peripheral Pulses: Dorsalis-pedis (R): 2+, Dorsalis-pedis (L): 2+ - Abdomen Additional Abdominal Details: Her abdomen is distended. She does have bowel sounds. She does have tenderness in the epigastric region as well as some tenderness in the lower abdomen bilaterally, no palpable mass. - Skin Skin: POSITIVE: Intact, No Rash - Extremities Extremity: Normal ROM: (All Extremities), Normal Inspection: (All Extremities) - Neurological / Psychological Neurological: POSITIVE: Oriented X3, Other (No focal neurologic deficits) N/V/D Progress - Results Reviewed by me Xrays/CTs/US Reviewed by me: Yes Discussed with Radiologist: Yes Radiology Findings: CT scan of the abdomen and pelvis with IV contrast shows no acute findings per radiologist. Lab Results Reviewed by Me: Yes CBC and BMP: 01/05/18 12:40 01/05/18 12:40 Lab Results:: Laboratory Results 3 01/05/18 01/05/18 01/05/18 12:40 12:40 12:40 WBC 7.95 RBC 5.29 Hgb 14.0 Hct 41.5 MCV 78.4 L MCH 26.5 L MCHC 33.7 RDW Std Deviation 41.9 RDW Coeff of Balbir 14.7 H Plt Count 264 MPV 9.8 Immature Gran % (Auto) 0.3 Neut % (Auto) 79.0 Lymph % (Auto) 14.3 [place] % (Auto) 5.3 Eos % (Auto) 0.8 Baso % (Auto) 0.3 Immature Gran # (Auto) 0.02 Neut # (Auto) 6.29 Lymph # (Auto) 1.14 [place] # (Auto) 0.42 Eos # (Auto) 0.06 Baso # (Auto) 0.02 WBC Morphology Comment Normal morphology Plt Morphology Comment Normal morphology RBC Morph Comment Normal morphology Sodium 133 L Potassium 4.4 Chloride 100 Carbon Dioxide 25 Anion Gap 8 BUN 13 Creatinine 0.5 BUN/Creatinine Ratio 26.00 H Glucose 211 H Calculated Osmolality 281.0 Calcium 9.8 Total Bilirubin 0.4 AST 26 ALT 26 Alkaline Phosphatase 94 Troponin I < 0.012 C-Reactive Protein 0.6 Total Protein 7.8 Albumin 4.8 Globulin 3.0 Albumin/Globulin Ratio 1.60 Amylase 128 H Lipase 133 - Patient's Progress MDM / ED Course: An IV was established and the patient received 1 L bolus of normal saline as well as Protonix 40 mg IV. Her nausea is improved however she continues to have significant lower back pain. She received morphine 2 mg IV. Her blood work is all essentially unremarkable with normal white count and minimally elevated amylase. CT scan of the abdomen and pelvis shows no acute findings per radiologist. Findings were discussed with the patient. The patient still feels quite miserable and is concerned about going home. At this point her increased vomiting and epigastric abdominal pain and bloating is most likely secondary to gastritis or ulcer from recent NSAID use. She has significant lower back pain with history of previous surgery and is scheduled for surgery on her lower back in early January. I did discuss the patient with Dr. Hair and he has agreed to admit the patient for further care. - Consult Counseled: POSITIVE: Patient, RE: Lab Results, RE: Radiology Results, RE: DX, RE : Need for F/U Patient Care Time - Estimated PCT Patient Care Time (In Minutes): 30 Vital Signs - Recent Vital Signs Vital Signs: Vital Signs (Last 8 hours) Temp Pulse Resp BP Pulse Ox 01/05/18 12:25 97.7 F 78 16 153/90 92 - VS Reviewed Vital Signs Reviewed: Yes Discharge Clinical Impression: Abdominal pain, Vomiting, Gastritis, Low back pain, Dehydration Discharge Disposition: Admit to Observation Condition: Fair Follow Up With: Dilip Das [Primary Care Provider] -
[2018-01-05 12:58] LABS: BLOOD UREA NITROGEN 13 mg/dL (7-22); LIPASE 133 IU/L (23-300); SERUM ALBUMIN 4.8 g/dL (3.5-4.8)
--- NOTE | 2018-01-05 13:46 | DI ---
CT ABDOMEN SCAN WITH IV CONTRAST, 01/05/2018 12:23 PM : Clinical History: Abdominal pain. Low back pain. Vomiting. Previous Exam: 11/29/2017. Scans are performed from the lower lung bases through the liver and kidneys with IV contrast. 75 mL o f Isovue 300 was injected IV. Volumen oral enterography contrast was administered. Atelectasis is present in both lung bases. The liver is normal. The patient is status post cholecyste ctomy and the common bile duct measures 6 mm. There is no abnormality of the spleen, pancreas, and ad renal glands. Both kidneys are normal in size, shape, position and contour. There is no hydronephrosi s or hydroureter. No renal or ureteral calculi are present. There are no abnormal retrocrural or vania aortic nodes. No ascites is present. READING: Normal CT abdomen scan. There has been no significant interval change. CT PELVIS SCAN WITH IV CONTRAST, 01/05/2018 12:23 PM: Clinical History: See above. Previous Exam: 11/29/2017 Scans are performed from just superior to the umbilicus to the symphysis pubis with IV contrast. This is the same bolus of contrast used for the CT scans of the abdomen. Scans through the lower abdomen and pelvis show no masses, enhancing lesions, or abnormal fluid colle ctions. There is no adenopathy. The appendix is not identified with certainty and may be surgically a bsent, but there is no inflammatory mass either in the cecum or in the right lower quadrant. The smal l bowel, terminal ileum, and ileocecal valve are normal. The colon is also normal. There are no herni as. The patient is status post hysterectomy and bilateral salpingo-oophorectomy. READING: Normal CT scan of the pelvis with IV contrast. There has been no significant interval change.
[2018-01-05] MEDS ORDERED: MORPHINE SULFATE 2 MG/1 ML IVP ONE (14:02)
[2018-01-05 14:45] LABS: BILIRUBIN,URINE NEGATIVE (NEG); CLARITY,URINE CLEAR (CLEAR); COLOR,URINE YELLOW (Y); GLUCOSE, URINE (UA) 100 mg/dL (NEG); OCCULT BLOOD,URINE NEGATIVE (NEG); PROTEIN,URINE TRACE mg/dl (NEG); UROBILINOGEN,URINE 0.2 EU/dL (0.2)
[2018-01-05 14:50] LABS: SQUAMOUS EPITHELIAL CELL,UR FEW; URINE SAMPLE TYPE VOIDED SPECIMEN; WBC,URINE 0-3
[2018-01-05] MEDS ORDERED: LIDOCAINE W/ SODIUM BICARB 0.5 ML SYR SUBD PRN (15:30)
[2018-01-05] MEDS ORDERED: NITROGLYCERIN 0.4 MG SL TAB (BOTTLE OF 3) SL PRN (15:30)
[2018-01-05] MEDS ORDERED: DOCUSATE 100 MG CAPSULE PO PRN (15:30)
[2018-01-05] MEDS ORDERED: ACETAMINOPHEN 325 MG TABLET PO PRN (15:30)
[2018-01-05] MEDS ORDERED: CALCIUM CARBONATE 500 MG (TUMS) CHEWABLE TABLET PO PRN (15:30)
[2018-01-05] MEDS ORDERED: ONDANSETRON 4 MG/2 ML VIAL IVP PRN (15:30)
--- NOTE | 2018-01-05 18:35 | PDOC ---
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 She apparently has disc herniation or fairly large disc bulge at L4 she thinks that is planned for surgery on January [address] Carmona in [place]. She states that over the last 2 days her pain has gotten significantly worse and she cannot even walk. She stated that she could not walk in the store. She came into the emergency room yesterday and was placed on hydrocodone. She has been taking ibuprofen to control pain as well. Today, she came back to the emergency room as hydrocodone did not seem to help and she had some vomiting earlier as well. She was sent to the emergency room after she saw her primary care physician with complaints of nausea and vomiting and it was felt that she was dehydrated. In the emergency room, the patient was given antiemetics, Protonix, was felt that she could have underlying gastritis and despite pain medications in the emergency room, the patient's pain persisted. She did not have any evidence of pancreatitis. She reports no blood in the stool and no black or tarry stools. She was normal in terms of her hemoglobin and hematocrit. She is not had any weight loss. She did not notice any coffee-ground emesis. She states her nausea has dissipated now, and she would like to eat. Her back pain is her main concern. No fevers and no chills and no urinary incontinence or stool incontinence. She does note that sometimes she has increased bladder urgency at night but during the day she does not have urinary incontinence. She notes that she's had symptoms of radiating pain down her left leg but over the last week or so it's moved down her right leg as well. She had palpable tenderness in her paraspinal muscles in the lower lumbar region. There was no skin rash. Past Medical History Medical History: Diabetes, hypertension, chronic back pain, atypical chest pain , hyperlipidemia, glaucoma, colon polyps, bilateral tinnitus, Surgical History: Appendectomy 1961, cataract extraction, cholecystectomy, colonoscopy in 2009 adenomatous polyp, hysterectomy in 73, laparoscopic cholecystectomy, left inguinal hernia, lumbar fusion, arthroscopickneesurgery on the right side, D&C x2, rotator cuff repair bilateral, sinus surgery, tonsillectomy, right knee surgery, back surgery recently with Dr. Carmona and awaiting L4 disc bulge surgery on January 19. Family History: Reviewed an Not Pertinent Pertinent Family History: Patient has history of rheumatoid arthritis in the family. Past Social History: Does not smoke or drink alcohol. Has a significant other. Has 5 children with various health problems. She lives here in [place], [place]. Retired. Tobacco Use: Never Smoker In the Past 12 Months, Have Used or Abuse Any of the Following Substance: None Alcohol Use: None Medication / Allergies Home Medications: Home Medications 3 Medication Instructions Recorded Confirmed Type Lo-Dose Aspirin Ec 81 mg ORAL QD tab 04/22/11 01/05/18 History Denosumab [Prolia] 60 mg SQ ONCE #1 11/09/11 01/05/18 History Cholecalciferol (Vitamin D3) 2,400 unit MC DAILY cap 04/27/12 01/05/18 History [Vitamin D3] Potassium Gluconate [Potassium] 99 mg PO DAILY unit 04/17/13 01/05/18 History Multivit with Minerals/Lutein 1 ea PO DAILY tab 02/05/14 01/05/18 History [Vision Plus Lutein Vitamin Tab] Acetaminophen [Tylenol] 1 tab PO BID tab 05/03/14 01/05/18 History Simethicone [Gas-X] 125 mg PO BID PRN #60 cap 03/06/15 01/05/18 History Loratadine [Claritin Tab] 1 tab PO DAILY #30 tab 06/03/15 01/05/18 History Nitroglycerin 0.4 mg SL Q5M PRN PRN #30 tab.subl 06/03/15 01/05/18 History Ranitidine HCl 75 mg PO DAILY #30 tab 06/03/15 01/05/18 History Cider Vinegar [Apple Cider Vinegar] 600 mg PO DAILY tab 12/16/15 01/05/18 History Magnesium Oxide 250 mg PO QD #30 tab 03/02/16 01/05/18 History ibuprofen 200 mg tablet 400 mg PO Q4-6H PRN 02/28/17 01/05/18 History metformin 1,000 mg tablet 1,000 mg PO BID #180 tab 04/04/17 01/05/18 Rx metoprolol succinate ER 25 mg 1 tab PO DAILY #90 tab 08/03/17 01/05/18 Rx tablet,extended release 24 hr amlodipine 10 mg tablet 10 mg PO QDAY #90 tab 08/30/17 01/05/18 Rx rosuvastatin 5 mg tablet 5 mg PO QDAY #90 tab 08/30/17 01/05/18 Rx gabapentin 300 mg capsule 300 mg PO TID #30 cap 10/25/17 01/05/18 Rx hydrocodone 5 mg-acetaminophen 325 1 tab PO Q6-8H PRN #30 tab 10/31/17 01/05/18 Rx mg tablet lisinopril 20 mg tablet 20 mg PO BID #180 tab 11/02/17 01/05/18 Rx Allergies/Adverse Reactions: Allergies 3 Allergy/AdvReac Type Severity Reaction Status Date / Time propoxyphene napsylate Allergy Intermediate NAUSEA Verified 01/05/18 12:14 [From Arely-N 100] Review of Systems - Review of Systems All Systems: Reviewed & No Additional Complaints Except as Stated (I did a 12 point review of systems and it was negative other than that discussed in the history of present illness) Exam - Vitals Vital Signs: Vital Signs Temperature 97.7 F Temperature Source Temporal Artery Scan Pulse Rate [Pulse Oximeter 78 Bilateral Radial] Respiratory Rate 16 Blood Pressure [Left Arm] 153/90 Pulse Ox 94 Oxygen Flow Rate 1 Oxygen Delivery Method Nasal Cannula Height 5 ft 1 in Weight 144 lb 14.4 oz - General General Appearance: No Acute Distress, Cooperative - Head Head Exam: Normal Inspection, Normocephalic, Atraumatic - Eye Eye Exam: POSITIVE: No Scleral Icterus - ENT ENT Exam: POSITIVE: Mucous Membranes Moist - Neck Neck Exam: Normal Inspection, No Tenderness, No Lymphadenopathy, No Thyromegaly , JVP is not Raised - Respiratory Respiratory Exam: POSITIVE: Clear to Auscultation - Bilaterally, Breathing Non Labored - Cardiovascular Cardiovascular Exam: POSITIVE: RRR, No Murmur, No Clicks, No Gallops, No Rubs, No JVD - GI/Abdominal GI/Abdominal Exam: POSITIVE: Normal Bowel Sounds, Non Tender, Non Distended, Soft Additional GI/Abdominal Exam Details: I could not elicit any tenderness with palpation of the abdomen. - Rectal Rectal Exam: POSITIVE: Deferred - External Exam: POSITIVE: Deferred Exam: POSITIVE: Deferred - Extremities Extremities Exam: POSITIVE: No Clubbing Present, No Edema Present, No Cyanosis Present - Back Back Exam: POSITIVE: No CVA Tenderness, Paraspinal Tenderness (In the lower lumbar areas) - Neurological Neurological Exam: POSITIVE: Alert, Oriented x 3, No Facial Droop, Speech Intact / Clear, Moves All Extremities Equally Additional Neurological Exam Details: She is hard of hearing and has hearing aids in. - Psychiatric Psychiatric Exam: POSITIVE: Normal Affect, Normal Mood - Central Line Examination Central Line Present on Admission: No Results - Labs CBC and BMP: 01/05/18 12:40 01/05/18 12:40 Additional Lab Results: Laboratory Results 01/05/18 01/05/18 01/05/18 Range/Units 12:40 12:40 12:40 WBC 7.95 (4.8-10.8) 10^3/uL RBC 5.29 (4.20-5.40) 10^6/uL Hgb 14.0 (12.0-16.0) g/dL Hct 41.5 (37.0-47.0) % MCV 78.4 L (81-99) FL MCH 26.5 L (27-31) PG MCHC 33.7 (33-37) g/dL RDW Std Deviation 41.9 (39-50) fL RDW Coeff of Balbir 14.7 H (11.5-14.5) % Plt Count 264 (140-350) 10*3/uL MPV 9.8 (7.4-12.2) FL Immature Gran % (Auto) 0.3 (0-5) % Neut % (Auto) 79.0 (50-80) % Lymph % (Auto) 14.3 (10-50) % [place] % (Auto) 5.3 (5-15) % Eos % (Auto) 0.8 (0-8) % Baso % (Auto) 0.3 (0-1) % Immature Gran # (Auto) 0.02 10*3/UL Neut # (Auto) 6.29 10*3/UL Lymph # (Auto) 1.14 10*3/uL [place] # (Auto) 0.42 (0.3-0.8) 10*3/UL Eos # (Auto) 0.06 10*3/UL Baso # (Auto) 0.02 10*3/UL WBC Morphology Comment Normal morphology (NORM) Plt Morphology Comment Normal morphology (NORM) RBC Morph Comment Normal morphology (NORM) Sodium 133 L (135-145) meq/L Potassium 4.4 (3.8-5.2) meq/L Chloride 100 (98-112) meq/L Carbon Dioxide 25 (23-33) meq/L Anion Gap 8 (5-20) BUN 13 (7-22) mg/dL Creatinine 0.5 (0.50-1.20) mg/dL BUN/Creatinine Ratio 26.00 H (6-20) Glucose 211 H (78-110) mg/dL Calculated Osmolality 281.0 (267-292) mOsm/kg Calcium 9.8 (8.7-10.7) mg/dL Total Bilirubin 0.4 (0.3-1.2) mg/dL AST 26 (8-39) IU/L ALT 26 (9-52) IU/L Alkaline Phosphatase 94 (38-126) IU/L Troponin I < 0.012 (< 0.040) ng/mL C-Reactive Protein 0.6 (0.0-0.9) mg/dL Total Protein 7.8 (6.1-8.0) g/dL Albumin 4.8 (3.5-4.8) g/dL Globulin 3.0 (2.50-4.10) g/dL Albumin/Globulin Ratio 1.60 (1.3-2.0) mg/g Amylase 128 H (30-110) U/L Lipase 133 (23-300) IU/L Ur Collection Type Urine Color (Y) Urine Clarity (CLEAR) Urine pH (5.0-8.5) Ur Specific [place] (1.005-1.030) Urine Protein (NEG) mg/dl Urine Glucose (UA) (NEG) mg/dL Urine Ketones (NEG) Urine Occult Blood (NEG) Urine Nitrate (NEG) Urine Bilirubin (NEG) Urine Urobilinogen (0.2) EU/dL Ur Leukocyte Esterase (NEG) Urine RBC (NONE) /hpf Urine WBC (NONE) Ur Squamous Epith Cells (NONE) Ur Renal Epithelial Cell (NONE) Urine Crystals Urine Bacteria (NONE) Urine Casts (NONE) Urine Mucus (NONE) Urine Trichomonas (NONE) Urine Yeast (NONE) Ur Culture Indicated? 01/05/18 Range/Units 14:39 WBC (4.8-10.8) 10^3/uL RBC (4.20-5.40) 10^6/uL Hgb (12.0-16.0) g/dL Hct (37.0-47.0) % MCV (81-99) FL MCH (27-31) PG MCHC (33-37) g/dL RDW Std Deviation (39-50) fL RDW Coeff of Balbir (11.5-14.5) % Plt Count (140-350) 10*3/uL MPV (7.4-12.2) FL Immature Gran % (Auto) (0-5) % Neut % (Auto) (50-80) % Lymph % (Auto) (10-50) % [place] % (Auto) (5-15) % Eos % (Auto) (0-8) % Baso % (Auto) (0-1) % Immature Gran # (Auto) 10*3/UL Neut # (Auto) 10*3/UL Lymph # (Auto) 10*3/uL [place] # (Auto) (0.3-0.8) 10*3/UL Eos # (Auto) 10*3/UL Baso # (Auto) 10*3/UL WBC Morphology Comment (NORM) Plt Morphology Comment (NORM) RBC Morph Comment (NORM) Sodium (135-145) meq/L Potassium (3.8-5.2) meq/L Chloride (98-112) meq/L Carbon Dioxide (23-33) meq/L Anion Gap (5-20) BUN (7-22) mg/dL Creatinine (0.50-1.20) mg/dL BUN/Creatinine Ratio (6-20) Glucose (78-110) mg/dL Calculated Osmolality (267-292) mOsm/kg Calcium (8.7-10.7) mg/dL Total Bilirubin (0.3-1.2) mg/dL AST (8-39) IU/L ALT (9-52) IU/L Alkaline Phosphatase (38-126) IU/L Troponin I (< 0.040) ng/mL C-Reactive Protein (0.0-0.9) mg/dL Total Protein (6.1-8.0) g/dL Albumin (3.5-4.8) g/dL Globulin (2.50-4.10) g/dL Albumin/Globulin Ratio (1.3-2.0) mg/g Amylase (30-110) U/L Lipase (23-300) IU/L Ur Collection Type Voided specimen Urine Color Yellow (Y) Urine Clarity Clear (CLEAR) Urine pH 7.0 (5.0-8.5) Ur Specific [place] 1.010 (1.005-1.030) Urine Protein Trace (NEG) mg/dl Urine Glucose (UA) 100 (NEG) mg/dL Urine Ketones Negative (NEG) Urine Occult Blood Negative (NEG) Urine Nitrate Negative (NEG) Urine Bilirubin Negative (NEG) Urine Urobilinogen 0.2 (0.2) EU/dL Ur Leukocyte Esterase Trace (NEG) Urine RBC None (NONE) /hpf Urine WBC 0-3 (NONE) Ur Squamous Epith Cells Few (NONE) Ur Renal Epithelial Cell None (NONE) Urine Crystals None Urine Bacteria None (NONE) Urine Casts None (NONE) Urine Mucus None (NONE) Urine Trichomonas None (NONE) Urine Yeast None (NONE) Ur Culture Indicated? Culture not set - Imaging Status: Report Reviewed by Me (The CT scan of the abdomen and pelvis was read as negative. I did look at the study. This too much distortion from the titanium rods from her prior back surgery to really get a good handle on any disc bulging on the study, at least to my scale of looking at the CT scans. Nothing in particular was noted about disc bulges from the radiologist that this is a CT scan.) Assessment and Plan - Patient Problems (1) Acute exacerbation of chronic low back pain Current Visit: No Status: Acute Code(s): M54.5 - Low back pain; G89.29 - Other chronic pain (2) Nausea and vomiting Current Visit: Yes Status: Acute Code(s): R11.2 - Nausea with vomiting, unspecified Qualifiers: Vomiting type: unspecified Vomiting Intractability: non-intractable Qualified Code(s): R11.2 - Nausea with vomiting, unspecified (3) Lumbar radiculopathy, acute Current Visit: Yes Status: Acute Code(s): M54.16 - Radiculopathy, lumbar region (4) Macular degeneration Current Visit: Yes Status: Chronic Code(s): H35.30 - Unspecified macular degeneration Qualifiers: Macular degeneration type: unspecified type Eye laterality: unspecified Qualified Code(s): H35.30 - Unspecified macular degeneration (5) Essential hypertension Current Visit: Yes Status: Chronic Onset Date: 03/17/12 Code(s): I10 - Essential (primary) hypertension (6) Diabetes mellitus type 2 in nonobese Current Visit: Yes Status: Chronic Onset Date: 08/03/11 Code(s): E11.9 - Type 2 diabetes mellitus without complications - Assessment / Plan Additional Assessment/Plan Details: admit for observation stop NSAIDs, start protonix. there are no "red flag" symptoms to suggest need for upper endoscopy check stool for occult blood, but patient has known history of sessile polyp in colon (benign pathology) last scoped 08/2017 pain meds for back pain (IV dilaudid) IV fluids call Dr. Carmona's office on 01/06/2018--I don't want to do steroids, NSAIDs, this close to surgery, question ability to move up date? her back pain is intractible CBC and iron panel in AM--indices are low advance diet antiemetics I really think the vomiting was more of a result of hydrocodone than anything. could be gastritis, but empiric protonix for next two months seems reasonable. EGD could be done on outpatient basis. ultimately, I think that the back pain is the issue that likely needs addressed first. will get barium swallow in AM full code discussed with patient/significant other, they agree with the plan
[2018-01-05] MEDS: Sodium Chloride 0.9% 1,000 ML PRIMARY IV SCH (19:33)
[2018-01-05] MEDS: HYDROmorphone 2 MG/1 ML IVP PRN (19:49)
[2018-01-05] MEDS: ACETAMINOPHEN 325 MG TABLET PO SCH (21:27)
[2018-01-05] MEDS: GABAPENTIN 300 MG CAPSULE PO SCH ×2 (21:28→21:34)
[2018-01-05] MEDS: Pravastatin Tab 40 MG TAB PO SCH (21:28)
[2018-01-05] MEDS: LISINOPRIL 20 MG TABLET PO SCH (21:32)
[2018-01-06] MEDS: HYDROmorphone 2 MG/1 ML IVP PRN ×2 (05:47→10:15)
[2018-01-06 05:53] LABS: BASOPHILS # (AUTO) 0.03 10*3/UL; BASOPHILS % (AUTO) 0.6 % (0-1); EOSINOPHILS % (AUTO) 4.2 % (0-8); Hematocrit [HCT] 36.6 % (37.0-47.0); LYMPHOCYTES # (AUTO) 1.16 10*3/uL; MEAN CORPUSCULAR HEMOGLOBIN 26.3 PG (27-31); MEAN CORPUSCULAR HGB CONC 32.8 g/dL (33-37); MEAN CORPUSCULAR VOLUME 80.3 FL (81-99); MEAN PLATELET VOLUME 9.8 FL (7.4-12.2); MONOCYTES # (AUTO) 0.72 10*3/UL (0.3-0.8); MONOCYTES % (AUTO) 15.3 % (5-15); NEUTROPHILS # (AUTO) 2.59 10*3/UL; NEUTROPHILS % (AUTO) 54.9 % (50-80); RED BLOOD COUNT 4.56 10^6/uL (4.20-5.40)
[2018-01-06 06:07] LABS: PLATELET MORPHOLOGY COMMENT NORMAL MORPHOLOGY (NORM); RBC MORPHOLOGY COMMENT NORMAL MORPHOLOGY (NORM); WBC MORPHOLOGY COMMENT NORMAL MORPHOLOGY (NORM)
[2018-01-06] MEDS: Sodium Chloride 0.9% 1,000 ML PRIMARY IV SCH (08:38)
[2018-01-06] MEDS: CHOLECALCIFEROL 1000 IU TABLET PO SCH (10:12)
[2018-01-06] MEDS: LORATADINE 10 MG TABLET PO SCH (10:12)
[2018-01-06] MEDS: Multivitamin Tab 1 TAB PO SCH (10:13)
[2018-01-06] MEDS: METOPROLOL SUCCINATE 25 MG SR 24H TABLET PO SCH (10:13)
[2018-01-06] MEDS: ACETAMINOPHEN 325 MG TABLET PO SCH ×2 (10:14→20:40)
[2018-01-06] MEDS: PANTOPRAZOLE IV 40 MG VIAL IVP SCH (10:15)
[2018-01-06] MEDS: LISINOPRIL 20 MG TABLET PO SCH ×2 (10:15→20:40)
[2018-01-06] MEDS ORDERED: CYANOCOBALAMIN 1000 MCG/1 ML VIAL IM ONE (12:10)
[2018-01-06] MEDS ORDERED: HYDROmorphone 2 MG/1 ML IVP ONE (12:18)
--- NOTE | 2018-01-06 12:18 | PDOC(PROG) ---
Date of Service: 01/06/18 Time of Service: 12:13 Interval History: Patient denies any chest pain today she denies shortness of breath. She states when she stands up, or when she sits up, her back pain gets worse and then she also feels nauseous. No vomiting. Back pain is only marginally better today and the patient really does not believe she can control her pain without IV Dilaudid. Objective : Data - Labs CBC and BMP: 01/06/18 05:40 01/05/18 12:40 Additional Lab Results: 01/06/18 01/06/18 05:40 05:40 Iron 40 TIBC 430 % Saturation 9.53 L Vitamin B12 218 L Serum Folate > 20.0 H - Imaging X-Ray Status: Image Pending (The esophagram and upper GI study are pending. These were barium studies.) Objective : Exam - General General Appearance: No Acute Distress, Cooperative Additional General Exam Details: Vital Signs - Last Taken Temperature 98.5 F 01/06/18 08:05 Pulse Rate 71 01/06/18 08:05 Respiratory Rate 18 01/06/18 08:05 Blood Pressure 139/69 01/06/18 08:05 Pulse Ox 93 01/06/18 08:05 - Head Head Exam: Normal Inspection, Normocephalic, Atraumatic - Eye Eye Exam: No Scleral Icterus - ENT ENT Exam: Mucous Membranes Moist - Respiratory Respiratory Exam: Clear to Auscultation - Bilaterally, Breathing Non Labored - Cardiovascular Cardiovascular Exam: RRR, No Murmur, No Clicks, No Gallops, No Rubs, No JVD - GI/Abdominal GI/Abdominal Exam: Normal Bowel Sounds, Non Tender, Non Distended, Soft - Extremities Extremities Exam: No Clubbing Present, No Edema Present, No Cyanosis Present - Neurological Neurological Exam: Alert, Oriented x 3, No Facial Droop, Speech Intact / Clear, Moves All Extremities Equally Assessment and Plan - Patient Problems (1) Acute exacerbation of chronic low back pain Current Visit: No Status: Acute Code(s): M54.5 - Low back pain; G89.29 - Other chronic pain (2) Nausea and vomiting Current Visit: Yes Status: Acute Code(s): R11.2 - Nausea with vomiting, unspecified Qualifiers: Vomiting type: unspecified Vomiting Intractability: non-intractable Qualified Code(s): R11.2 - Nausea with vomiting, unspecified (3) Lumbar radiculopathy, acute Current Visit: Yes Status: Acute Code(s): M54.16 - Radiculopathy, lumbar region (4) Macular degeneration Current Visit: Yes Status: Chronic Code(s): H35.30 - Unspecified macular degeneration Qualifiers: Macular degeneration type: unspecified type Eye laterality: unspecified Qualified Code(s): H35.30 - Unspecified macular degeneration (5) Essential hypertension Current Visit: Yes Status: Chronic Onset Date: 03/17/12 Code(s): I10 - Essential (primary) hypertension (6) Diabetes mellitus type 2 in nonobese Current Visit: Yes Status: Chronic Onset Date: 08/03/11 Code(s): E11.9 - Type 2 diabetes mellitus without complications - Assessment / Plan Additional Assessment/Plan Details: The patient has a known L1 compression fracture from November 2017. I actually saw the patient on that admission. Because of the nature of that fracture, we sent her to [facility] to the have a TLSO brace applied. I'm very concerned as the pain pattern is worse, she is only marginally better overnight, and when I spoke to the referral center in [place], her surgeon is out of town, and his call partner is also not in the clinic today. I don't think we have any other choice but to reimage, and make sure there is nothing that would suggest acute need for surgery and then determine the next steps from there. Continue Dilaudid for pain. Await esophagram studies and upper GI study. Continue proton pump inhibitor No anti-inflammatories/no aspirin. Patient is scheduled apparently for surgery January 19 but I don't know what is planned. I would like to hold off on steroids if possible.
[2018-01-06] MEDS ORDERED: Iron Sucrose Inj 500 MG in Sodium Chloride 0.9% 250 ML IV ONE (12:30)
--- NOTE | 2018-01-06 14:42 | DI ---
MRI LUMBAR SPINE SCAN WITHOUT IV CONTRAST, 01/06/2018 12:12 PM: Clinical History: Worsening radicular symptoms. L1 fracture. Previous multilevel lumbar fusions. Previous Exam: 11/29/2017. Technique: Sagittal and axial T2 weighted; sagittal T1 weighted and T2 STIR; and axial PD. The patient is status post anterior and posterior fusions between L2-3 through L5-S1 with laminectomi es from L2-S1. There are erosive changes of the anteroinferior margin of the body of L1 with a superi or endplate invagination of the body of L2. Both of these vertebral bodies show increased signal inte nsity consistent with edema and this pattern is unchanged from the prior exam. Posterior fusions are accomplished with metallic struts transfixed with pedicle screws between L2 and L5. The anterior fusi on at L5-S1 is solid. The fusions between L2-3 and L4-5 do not appear to be solid. The cord terminate s at T12. The conus medullaris is normal. The T9-10 and T10-11 disc spaces are normal. T11-12 and T12-L1 disc spaces have minimally bulging but not herniated discs without canal or neural foraminal stenosis. There is a new left anterior disc he rniation at L1-2 and the large disc fragment has descended behind the body of L2 on the left side. Th ere is spinal canal stenosis secondary to hypertrophic changes of the apophyseal joints and ligamentu m flavum and the bulging but not herniated disc. The canal from L2-3 through L5-S1 shows no stenosis and there is no "clumping" of the nerve roots to indicate arachnoiditis. There is no neural foraminal stenoses at these levels. Readin. Status post anterior and posterior fusions from L2-3 through L5-S1 and these levels show no canal or neural foraminal stenosis. 2. There is invagination of the superior endplate of L2 and erosive change of the anteroinferior mar gin of the body of L1 with presumed edema from both vertebral bodies suggesting there is motion at th is level. Both vertebral bodies show marked increased in signal intensity indicating edema. The appea mariam is similar to the prior exam. The patient has developed a new left-sided large L1-2 disc hernia tion that is descends behind the body of L2. There is spinal canal stenosis without neural foraminal stenosis. 3. T11-12 and T12-L1 disc spaces have bulging but not herniated discs without canal or neural forami nal stenosis. 4. The T9-10 and T10-11 disc spaces are normal.
[2018-01-06] MEDS: HYDROcodone-APAP 5 MG -325 MG TABLET PO PRN ×2 (18:04→23:54)
[2018-01-06] MEDS ORDERED: DEXAMETHASONE PF 10 MG/1 ML VIAL IVP ONE (19:01)
[2018-01-06] MEDS ORDERED: Fleet Enema w/Mineral Oil 133ml RECTAL ONE (19:02)
[2018-01-06] MEDS: Pravastatin Tab 40 MG TAB PO SCH (20:40)
[2018-01-07] MEDS: Sodium Chloride 0.9% 1,000 ML PRIMARY IV SCH ×2 (01:15→13:50)
[2018-01-07] MEDS ORDERED: METHYLPREDNISOLONE 4 MG TAB DOSE PACK(DAY 1 0700) PO SCH (07:00)
[2018-01-07] MEDS: LORATADINE 10 MG TABLET PO SCH (09:35)
[2018-01-07] MEDS: ACETAMINOPHEN 325 MG TABLET PO SCH ×2 (09:35→20:38)
[2018-01-07] MEDS: METOPROLOL SUCCINATE 25 MG SR 24H TABLET PO SCH (09:35)
[2018-01-07] MEDS: HYDROcodone-APAP 5 MG -325 MG TABLET PO PRN ×3 (09:36→20:37)
[2018-01-07] MEDS: PANTOPRAZOLE IV 40 MG VIAL IVP SCH (09:36)
[2018-01-07] MEDS: Multivitamin Tab 1 TAB PO SCH (09:36)
[2018-01-07] MEDS: LISINOPRIL 20 MG TABLET PO SCH ×2 (09:49→20:40)
--- NOTE | 2018-01-07 11:00 | DI ---
SINGLE CONTRAST UPPER GI SERIES, 01/06/2018 7:00 AM: Clinical History: Nausea and vomiting. A "time out" session was performed to verify the patient's name and date of prior to initiating this procedure. Deglutition is normal and there is no aspiration. There are tertiary contractions appropriate for the patient's age. There is no esophageal ulcer or evidence of esophagitis. At the GE junction, there is extrinsic compression causing narrowing. This extrinsic defect changes shape making mucosal thickeni ng or a nodular lesion less likely. The patient was brought back on 01/07/2018 and are too assessed th e significance of this narrowing. The patient was given a 12 mm barium tablet to swallow with water. She experienced no difficulty in swallowing or complaints of nausea. Over a period of approximately 5 minutes, the barium tablet remained at the GE junction. A small sliding hiatal hernia is present. Th ere is spontaneous reflux to the midesophagus. The stomach, pyloric channel, duodenal bulb, C-loop, and the proximal small bowel run off are normal. Readin. There is narrowing at the GE junction but there is no fixed defect to indicate a mucosal or submu cosal lesion. The 12 mm barium tablet failed to traverse the GE junction after a period of approximat maryam 5 minutes. The patient did not complain of any nausea or the urge to vomit following multiple att empts of drinking water. The esophagus itself is otherwise normal. There is reflux to the midesophagu s in the supine position. 2. The stomach, pyloric channel, duodenal bulb, and C-loop are normal.
[2018-01-07] MEDS ORDERED: METHYLPREDNISOLONE 4 MG TAB DOSE PACK(DAY 1-4 1230) PO SCH ×2 (12:00→14:30)
[2018-01-07] MEDS: CHOLECALCIFEROL 1000 IU TABLET PO SCH (13:49)
--- NOTE | 2018-01-07 15:14 | PDOC(PROG) ---
Date of Service: 01/07/18 Time of Service: 15:02 Interval History: Patient seen and evaluated earlier. She is very happy today states that her pain is under much better control, has been able to ambulate to the bathroom, nausea and vomiting have improved. No chest pain and no shortness of breath. Objective : Data - Labs CBC and BMP: 01/06/18 05:40 01/05/18 12:40 - Imaging X-Ray Status: Report Reviewed by Me (The upper GI series seems to suggest this gastroesophageal junction stricture. I'll try to arrange an outpatient evaluation for possible EGD with dilation.) Objective : Exam - General General Appearance: No Acute Distress, Cooperative Additional General Exam Details: Vital Signs - Last Taken Temperature 98 F 01/07/18 11:42 Pulse Rate 91 01/07/18 11:42 Respiratory Rate 18 01/07/18 11:42 Blood Pressure 141/70 01/07/18 11:42 Pulse Ox 95 01/07/18 11:42 - Eye Eye Exam: No Scleral Icterus - ENT ENT Exam: Mucous Membranes Moist - Respiratory Respiratory Exam: Clear to Auscultation - Bilaterally, Breathing Non Labored - Cardiovascular Cardiovascular Exam: RRR, No Murmur, No Clicks, No Gallops, No Rubs, No JVD - GI/Abdominal GI/Abdominal Exam: Normal Bowel Sounds, Non Tender, Non Distended, Soft - Extremities Extremities Exam: No Clubbing Present, No Edema Present, No Cyanosis Present - Neurological Neurological Exam: Alert, Oriented x 3, No Facial Droop, Speech Intact / Clear, Moves All Extremities Equally Assessment and Plan - Patient Problems (1) Lumbar disc herniation with radiculopathy Current Visit: Yes Status: Acute Code(s): M51.16 - Intervertebral disc disorders with radiculopathy, lumbar region (2) Acute exacerbation of chronic low back pain Current Visit: Yes Status: Acute Code(s): M54.5 - Low back pain; G89.29 - Other chronic pain (3) Nausea and vomiting Current Visit: Yes Status: Acute Code(s): R11.2 - Nausea with vomiting, unspecified Qualifiers: Vomiting type: unspecified Vomiting Intractability: non-intractable Qualified Code(s): R11.2 - Nausea with vomiting, unspecified (4) Lumbar radiculopathy, acute Current Visit: Yes Status: Acute Code(s): M54.16 - Radiculopathy, lumbar region (5) Macular degeneration Current Visit: Yes Status: Chronic Code(s): H35.30 - Unspecified macular degeneration Qualifiers: Macular degeneration type: unspecified type Eye laterality: unspecified Qualified Code(s): H35.30 - Unspecified macular degeneration (6) Essential hypertension Current Visit: Yes Status: Chronic Onset Date: 03/17/12 Code(s): I10 - Essential (primary) hypertension (7) Diabetes mellitus type 2 in nonobese Current Visit: Yes Status: Chronic Onset Date: 08/03/11 Code(s): E11.9 - Type 2 diabetes mellitus without complications (8) Esophageal stricture Current Visit: Yes Status: Acute Code(s): K22.2 - Esophageal obstruction (9) GERD (gastroesophageal reflux disease) Current Visit: No Status: Chronic Code(s): K21.9 - Gastro-esophageal reflux disease without esophagitis Qualifiers: Esophagitis presence: esophagitis presence not specified Qualified Code(s) : K21.9 - Gastro-esophageal reflux disease without esophagitis - Assessment / Plan Additional Assessment/Plan Details: Upper GI series reveals some mild reflux, and esophageal stricture. Recent narrowing at the gastroesophageal junction. She probably will need an EGD. I' ll try to arrange that for her sometime this week. I will discuss with surgery. Continue Protonix. Placed on Medrol Dosepak, patient can tolerate by mouth pain medications and by mouth steroids with continued relief of pain and inability to move, I think we can go ahead and consider discharge tomorrow and try to get the patient to her surgical date in January. No cauda equina symptoms. Stop telemetry monitoring and stop fluids.
[2018-01-07] MEDS: METHYLPREDNISOLONE 4 MG TAB DOSE PACK PO SCH ×2 (15:33→19:34)
[2018-01-07] MEDS ORDERED: METHYLPREDNISOLONE 4 MG TAB DOSE PACK(DAY 1-3 1730) PO SCH (17:30)
[2018-01-07] MEDS: Pravastatin Tab 40 MG TAB PO SCH (20:38)
[2018-01-07] MEDS ORDERED: METHYLPREDNISOLONE 4 MG TAB DOSE PACK(DAY 1-2 2100) PO SCH (21:00)
[2018-01-08] MEDS ORDERED: METHYLPREDNISOLONE 4 MG TAB DOSE PACK PO ONE (00:30)
[2018-01-08] MEDS: HYDROcodone-APAP 5 MG -325 MG TABLET PO PRN ×2 (04:53→10:24)
[2018-01-08 06:34] VITALS: RESP 18
[2018-01-08] MEDS ORDERED: METHYLPREDNISOLONE 4 MG TAB DOSE PACK(DAY 2-6 0700) PO SCH ×2 (07:00)
[2018-01-08] MEDS: PANTOPRAZOLE IV 40 MG VIAL IVP SCH (08:59)
[2018-01-08] MEDS: LORATADINE 10 MG TABLET PO SCH (08:59)
[2018-01-08] MEDS: LISINOPRIL 20 MG TABLET PO SCH (08:59)
[2018-01-08] MEDS: CHOLECALCIFEROL 1000 IU TABLET PO SCH ×2 (08:59→09:06)
[2018-01-08] MEDS ORDERED: METHYLPREDNISOLONE 4 MG TAB DOSE PACK PO SCH (09:00)
[2018-01-08] MEDS: ACETAMINOPHEN 325 MG TABLET PO SCH (09:00)
[2018-01-08] MEDS: Multivitamin Tab 1 TAB PO SCH (09:00)
[2018-01-08] MEDS: METOPROLOL SUCCINATE 25 MG SR 24H TABLET PO SCH (09:00)
[2018-01-08 11:03] VITALS: BP 161/87; TEMP 98.2; O2SAT 91
[2018-01-08] MEDS ORDERED: METHYLPREDNISOLONE 4 MG TAB DOSE PACK(DAY 1-4 1230) PO SCH (12:00)
--- NOTE | 2018-01-08 12:31 | DCSUMMARY ---
Hospitalization Summary Admit Date: 01/05/2018 Discharge Date: 01/08/18 Primary Diagnosis:: L1 fracture and disc herniation Secondary Diagnosis:: GERD, possible esophageal stricture, vitamin B12 deficiency, probable iron deficiency Hospital Course: This is a very pleasant 82-year-old female who recently had a fracture at L1 above her prior lumbar surgical site. She had plans to go in for surgery in January, but the pain got significantly worse, and she came in for evaluation. Repeat MRI scan showed that she had a disc herniation. I did speak with Dr. Mejía, [facility] neurosurgeon in [place], and he suggested that it would be okay to use IV steroids if necessary to try and control the pain and if not that he would accept the patient. We tried dexamethasone, and the patient's pain significantly improved and she was able to ambulate. We placed her on Solu- Medrol Dosepak, and she did very well with that. She is on hydrocodone and we have held off on anti-inflammatories and aspirin given that her spine surgery as scheduled for some time in early January. During the hospital stay, her indices were noted to be low, and I did do some workup on her vitamin B12 level and also her iron panel and we found an iron deficiency, probably, and vitamin B12 deficiency. I recommended that we continue to replace vitamin B12 on a monthly basis. The patient had nausea and vomiting I think that were mostly pain induced, however upper GI series did show that the patient has what appears to be gastroesophageal reflux disease into the mid third of the esophagus, the distal mid third, and she may have a distal gastroesophageal junction narrowing or possible stricture. I spoke to a surgeon, and we will try to arrange her for an outpatient visit with Dr. Bass in the next few days to plan for an EGD with dilation if necessary and if stricture is confirmed. I really like to get this done prior to spine surgery if possible for the patient to eliminate complications and the setting of her spine surgery if possible. We will place her on daily Protonix and used IV Protonix in the hospital to boost blood levels as much as recorded. I did discuss with the patient and her significant other that if she has any loss of bowel or bladder function, she really needs to get to the emergency room as this could indicate cauda equina syndrome and she would need decompression if that were the case. She did not have the symptoms during the hospital stay. Today, she states her back pain is much better controlled, she feels her nausea and vomiting are much better controlled, and she would like to go home. She's been able to ambulate to the bathroom and was able to ambulate and take a shower this morning. Therapy saw her and felt that she was safe to go home as well. Assessment and Plan: 1. As per discharge assessments noted 2. Disposition: Patient is discharged home. 3. Condition on discharge, stable and improved. 4. Diet: regular diet 5. Activities: resume normal activities, but no heavy lifting 6. Follow-Up: 1. Dr. Das one week 2. Dr. Bass in the next [address] Carmona, her surgeon, as necessary. 7. Medications at the Time of Discharge: Home Medications 3 Medication Instructions Recorded Confirmed Type Denosumab [Prolia] 60 mg SQ ONCE #1 11/09/11 01/05/18 History Cholecalciferol (Vitamin D3) 2,400 unit MC DAILY cap 04/27/12 01/05/18 History [Vitamin D3] Potassium Gluconate [Potassium] 99 mg PO DAILY unit 04/17/13 01/05/18 History Multivit with Minerals/Lutein 1 ea PO DAILY tab 02/05/14 01/05/18 History [Vision Plus Lutein Vitamin Tab] Loratadine [Claritin] 1 tab PO DAILY #30 tab 06/03/15 01/05/18 History Nitroglycerin 0.4 mg SL Q5M PRN PRN #30 tab.subl 06/03/15 01/05/18 History Cider Vinegar [Apple Cider Vinegar] 600 mg PO DAILY tab 12/16/15 01/05/18 History Magnesium Oxide 250 mg PO QD #30 tab 03/02/16 01/05/18 History metformin 1,000 mg tablet 1,000 mg PO BID #180 tab 04/04/17 01/05/18 Rx metoprolol succinate ER 25 mg 1 tab PO DAILY #90 tab 08/03/17 01/05/18 Rx tablet,extended release 24 hr amlodipine 10 mg tablet 10 mg PO QDAY #90 tab 08/30/17 01/05/18 Rx rosuvastatin 5 mg tablet 5 mg PO QDAY #90 tab 08/30/17 01/05/18 Rx gabapentin 300 mg capsule 300 mg PO TID #30 cap 10/25/17 01/05/18 Rx lisinopril 20 mg tablet 20 mg PO BID #180 tab 11/02/17 01/05/18 Rx Cyanocobalamin Inj [Vitamin B-12 1,000 mcg IM MONTHLY #1 vial 01/08/18 Rx Inj] Hydrocodone/Acetaminophen 1 tab PO Q6-8H PRN #30 tab 01/08/18 Rx [Hydrocodone-Acetamin 5-325 mg] Pantoprazole Sodium [Protonix] 40 mg PO DAILY #60 tab 01/08/18 Rx methylPREDNISolone Dose Pack 4 mg PO BEDTIME [place] 01/08/18 Rx [Medrol Dose Pack] methylPREDNISolone Dose Pack 4 mg PO DAILY@0700 [facility] 01/08/18 Rx [Medrol Dose Pack] methylPREDNISolone Dose Pack 4 mg PO DAILY@1200 [facility] 01/08/18 Rx [Medrol Dose Pack] methylPREDNISolone Dose Pack 4 mg PO DAILY@1730 [facility] 01/08/18 Rx [Medrol Dose Pack] methylPREDNISolone Dose Pack 8 mg PO 1430,1930 [facility] 01/08/18 Rx [Medrol Dose Pack] methylPREDNISolone Dose Pack 8 mg PO BEDTIME [facility] 01/08/18 Rx [Medrol Dose Pack] Exam - Vitals Vital Signs: Vital Signs Temperature 98.2 F Temperature Source Temporal Artery Scan Pulse Rate [Pulse Oximeter] 85 Pulse Rate [Pulse Oximeter 83 Bilateral Radial] Pulse Rate 79 Respiratory Rate 18 Blood Pressure [Right Arm] 161/87 Blood Pressure [Left Arm] 143/77 Pulse Ox 91 Oxygen Flow Rate RA Oxygen Delivery Method Room Air Height 5 ft 1 in Weight 146 lb 3.2 oz - General General Appearance: No Acute Distress, Cooperative - Eye Eye Exam: POSITIVE: No Scleral Icterus - ENT ENT Exam: POSITIVE: Mucous Membranes Moist - Respiratory Respiratory Exam: POSITIVE: Clear to Auscultation - Bilaterally, Breathing Non Labored - Cardiovascular Cardiovascular Exam: POSITIVE: RRR, No Murmur, No Clicks, No Gallops, No Rubs, No JVD - GI/Abdominal GI/Abdominal Exam: POSITIVE: Normal Bowel Sounds, Non Tender, Non Distended, Soft - Extremities Extremities Exam: POSITIVE: No Clubbing Present, No Edema Present, No Cyanosis Present - Neurological Neurological Exam: POSITIVE: Alert, Oriented x 3, No Facial Droop, Speech Intact / Clear, Moves All Extremities Equally - Psychiatric Psychiatric Exam: POSITIVE: Normal Affect, Normal Mood Data Peritnent Studies: 01/05/18 01/05/18 01/05/18 12:40 12:40 12:50 WBC Hgb Hct Plt Count ESR 13 Sodium 133 L Potassium 4.4 Chloride 100 Carbon Dioxide 25 Anion Gap 8 BUN 13 Creatinine 0.5 BUN/Creatinine Ratio 26.00 H Glucose 211 H Calculated Osmolality 281.0 Calcium 9.8 Iron TIBC % Saturation Total Bilirubin 0.4 AST 26 ALT 26 Alkaline Phosphatase 94 Troponin I < 0.012 C-Reactive Protein 0.6 Total Protein 7.8 Albumin 4.8 Globulin 3.0 Albumin/Globulin Ratio 1.60 Amylase 128 H Lipase 133 Vitamin B12 Serum Folate 01/06/18 01/06/18 01/06/18 05:40 05:40 05:40 WBC 4.72 L Hgb 12.0 Hct 36.6 L Plt Count 215 ESR Sodium Potassium Chloride Carbon Dioxide Anion Gap BUN Creatinine BUN/Creatinine Ratio Glucose Calculated Osmolality Calcium Iron 40 TIBC 430 % Saturation 9.53 L Total Bilirubin AST ALT Alkaline Phosphatase Troponin I C-Reactive Protein Total Protein Albumin Globulin Albumin/Globulin Ratio Amylase Lipase Vitamin B12 218 L Serum Folate > 20.0 H Procedures: [address] [facility]. [facility] [place] [address] PH: DD: [phone] FAX: [phone] ~DIAGNOSTIC IMAGING REPORT~ Patient: Estella Arteaga : 1935 Sex: F Age: 82 Exam Name: MRI Lumbar Spine WO Contrast Exam Date: 01/06/18 Report # : [id number] CPT Code: 27650 EMR/MR #: [id number] Ordering: KIARRA BUNDY Admiting: KIARRA BUNDY DO Primary: Dilip Das MD Attending: KIARRA BUNDY DO Signed MRI LUMBAR SPINE SCAN WITHOUT IV CONTRAST, 01/06/2018 12:12 PM: Clinical History: Worsening radicular symptoms. L1 fracture. Previous multilevel lumbar fusions. Previous Exam: 11/29/2017. Technique: Sagittal and axial T2 weighted; sagittal T1 weighted and T2 STIR; and axial PD. The patient is status post anterior and posterior fusions between L2-3 through L5-S1 with laminectomies from L2-S1. There are erosive changes of the anteroinferior margin of the body of L1 with a superior endplate invagination of the body of L2. Both of these vertebral bodies show increased signal intensity consistent with edema and this pattern is unchanged from the prior exam. Posterior fusions are accomplished with metallic struts transfixed with pedicle screws between L2 and L5. The anterior fusion at L5-S1 is solid. The fusions between L2-3 and L4-5 do not appear to be solid. The cord terminates at T12. The conus medullaris is normal. The T9-10 and T10-11 disc spaces are normal. T11-12 and T12-L1 disc spaces have minimally bulging but not herniated discs without canal or neural foraminal stenosis. There is a new left anterior disc herniation at L1-2 and the large disc fragment has descended behind the body of L2 on the left side. There is spinal canal stenosis secondary to hypertrophic changes of the apophyseal joints and ligamentum flavum and the bulging but not herniated disc. The canal from L2-3 through L5-S1 shows no stenosis and there is no "clumping" of the nerve roots to indicate arachnoiditis. There is no neural foraminal stenoses at these levels. Readin. Status post anterior and posterior fusions from L2-3 through L5-S1 and these levels show no canal or neural foraminal stenosis. 2. There is invagination of the superior endplate of L2 and erosive change of the anteroinferior margin of the body of L1 with presumed edema from both vertebral bodies suggesting there is motion at this level. Both vertebral bodies show marked increased in signal intensity indicating edema. The appearance is similar to the prior exam. The patient has developed a new left- sided large L1-2 disc herniation that is descends behind the body of L2. There is spinal canal stenosis without neural foraminal stenosis. 3. T11-12 and T12-L1 disc spaces have bulging but not herniated discs without canal or neural foraminal stenosis. 4. The T9-10 and T10-11 disc spaces are normal. Dictated By: 01/06/18 1416 FRANCISCO HERBERT MD. Signed By: 01/06/18 1449 FRANCISCO HERBERT MD. [address] [facility] [place] [address] PH: DD: [phone] FAX: [phone] ~DIAGNOSTIC IMAGING REPORT~ Patient: Estella Arteaga : 1935 Sex: F Age: 82 Exam Name: XR UPPER GI SERIES W/O AIR Exam Date: 01/06/18 Report # : [id number] CPT Code: 25972 EMR/MR #: [id number] Ordering: KIARRA BUNDY Admiting: KIARRA BUNDY DO Primary: Dilip Das MD Attending: KIARRA BUNDY DO Signed SINGLE CONTRAST UPPER GI SERIES, 01/06/2018 7:00 AM: Clinical History: Nausea and vomiting. A "time out" session was performed to verify the patient's name and date of prior to initiating this procedure. Deglutition is normal and there is no aspiration. There are tertiary contractions appropriate for the patient's age. There is no esophageal ulcer or evidence of esophagitis. At the GE junction, there is extrinsic compression causing narrowing. This extrinsic defect changes shape making mucosal thickening or a nodular lesion less likely. The patient was brought back on 01/07 and are too assessed the significance of this narrowing. The patient was given a 12 mm barium tablet to swallow with water. She experienced no difficulty in swallowing or complaints of nausea. Over a period of approximately 5 minutes, the barium tablet remained at the GE junction. A small sliding hiatal hernia is present. There is spontaneous reflux to the midesophagus. The stomach, pyloric channel, duodenal bulb, C-loop, and the proximal small bowel run off are normal. Readin. There is narrowing at the GE junction but there is no fixed defect to indicate a mucosal or submucosal lesion. The 12 mm barium tablet failed to traverse the GE junction after a period of approximately 5 minutes. The patient did not complain of any nausea or the urge to vomit following multiple attempts of drinking water. The esophagus itself is otherwise normal. There is reflux to the midesophagus in the supine position. 2. The stomach, pyloric channel, duodenal bulb, and C-loop are normal. Dictated By: 01/06/18 1227 FRANCISCO HERBERT MD. Signed By: 01/07/18 1100 FRANCISCO HERBERT MD. Please note that MRI scan was pushed up to [place]. Patient Problems - Patient Problem List (1) Lumbar disc herniation with radiculopathy Current Visit: Yes Status: Acute Code(s): M51.16 - Intervertebral disc disorders with radiculopathy, lumbar region Category: Medical (2) Acute exacerbation of chronic low back pain Current Visit: Yes Status: Acute Code(s): M54.5 - Low back pain; G89.29 - Other chronic pain Category: Medical (3) Nausea and vomiting Current Visit: Yes Status: Acute Code(s): R11.2 - Nausea with vomiting, unspecified Qualifiers: Vomiting type: unspecified Vomiting Intractability: non-intractable Qualified Code(s): R11.2 - Nausea with vomiting, unspecified Category: Medical (4) Lumbar radiculopathy, acute Current Visit: Yes Status: Acute Code(s): M54.16 - Radiculopathy, lumbar region Category: Medical (5) Macular degeneration Current Visit: Yes Status: Chronic Code(s): H35.30 - Unspecified macular degeneration Qualifiers: Macular degeneration type: unspecified type Eye laterality: unspecified Qualified Code(s): H35.30 - Unspecified macular degeneration Category: Medical (6) Essential hypertension Current Visit: Yes Status: Chronic Onset Date: 03/17/12 Code(s): I10 - Essential (primary) hypertension Category: Medical (7) Diabetes mellitus type 2 in nonobese Current Visit: Yes Status: Chronic Onset Date: 08/03/11 Code(s): E11.9 - Type 2 diabetes mellitus without complications Category: Medical (8) Esophageal stricture Current Visit: Yes Status: Suspected Code(s): K22.2 - Esophageal obstruction Category: Medical (9) GERD (gastroesophageal reflux disease) Current Visit: Yes Status: Acute Code(s): K21.9 - Gastro-esophageal reflux disease without esophagitis Qualifiers: Esophagitis presence: esophagitis presence not specified Qualified Code(s) : K21.9 - Gastro-esophageal reflux disease without esophagitis Category: Medical
[2018-01-08] MEDS ORDERED: METHYLPREDNISOLONE 4 MG TAB DOSE PACK(DAY 1-3 1730) PO SCH (17:30)
[2018-01-08] MEDS ORDERED: METHYLPREDNISOLONE 4 MG TAB DOSE PACK(DAY 1-2 2100) PO SCH (21:00)
--- NOTE | 2018-01-09 10:29 | PTI REPORT ---
Thank you for the referral of Estella Arteaga. She was seen on 01/08/18 for an inpatient evaluation secondary to back pain. SUBJECTIVE: The patient is an 82-year-old female who states that she presented to the ER on 01/05/2018 secondary to uncontrolled low back pain and vomiting. The patient states that she had an appointment with her primary doctor, Dr. Das and Dr. Das had brought her up to the ER as she was having uncontrolled vomiting and pain. She states that was at approximately noon on 01/05/2018. The patient states that she was in the ER the day before secondary to her back pain as well. The patient has a chronic history of low back pain with two previous fusion surgeries. One in 2004 and the other in 2016. The patient states her low back pain is primarily on the left side but she is also having some pain on the right. She states her pain has been better controlled since her admittance to the hospital. She states that her pain is a 5/10 on the verbal analog scale (0=no pain, 10=worst pain) and she is due for a pain pill shortly. The patient reports that her pain does increase with movement, especially walking. The patient denies any weakness or noticeable difference in strength from the left to the right lower extremity. The patient states that she is scheduled for another back surgery on 01/19/[address] Carmona and is planning on going to [place] to rehab following the surgery. The patient lives here in [place] with her spouse. They live in a one level house which has approximately 5 stairs to get into and out of the home. The patient states that she was not having any trouble with ADLs prior to admittance to the hospital and has been ambulating around without use of an assistive device. The patient states that she does have a shower chair and grab bars at home along with a back brace that she wears when she is very sore. The patient did undergo an MRI with her admittance to the hospital and is found to have an L1 herniation. PAST MEDICAL HISTORY: Past medical history can be found in the patient's medical record. OBJECTIVE FINDINGS: General observations: The patient was alert and oriented to setting upon PT arrival. The patient was in bed with head of bed elevated and agreed to participate in therapy. Pain: The patient reported a pain level of 5/10 and stated that she needed to use the bathroom. Bed mobility: The patient required min assist x1 in order to transfer from supine to seated edge of bed. The patient demonstrated good edge of bed seated balance. The patient transferred from sitting edge of bed to supine with stand by assist x1. Strength: Manual muscle testing was performed in the seated position and the patient demonstrated 4/5 bilateral lower extremity strength. There was no provocation of pain with manual muscle testing. Transfers: The patient was able to perform a sit to stand transfer safely and independently. Ambulation: The patient ambulated 25 feet to the bathroom with stand by assist x1 for safety. The patient then ambulated 75 feet with stand by assist x1 for safety. The patient ascended and descended 5 steps, using the handrail on the right safely and independently with stand by assist x1 for safety. The patient then ambulated back to her room x75 feet with stand by assist x1 for safety. Activities of daily living: The patient was able to complete all toileting activity independently. ASSESSMENT: The patient has fair rehab potential secondary to her chronic history of low back pain. The patient is scheduled for surgery on 01/19/2018. Problem List: Low back pain, left side greater than the right Generalized weakness Short-Term Goals: To be met by discharge from inpatient: Patient will be able to ambulate at least 150 feet without assistive device safely and independently. Patient will be able to ascend and descend at least 5 stairs with hand rail on the right safely and independently. Patient will be able to transfer from bed to stand safely and independently. Long-Term Goals: To be met following discharge from inpatient: Patient most likely will be seen by outpatient physical therapy following her surgery on January 19, 2018. TREATMENT PLAN: Patient will be seen one time only as the patient has met goals established by therapy. The patient did require assist of one in order to go from supine to seated position, but the patient does not sleep in her bed at home as she uses her recliner chair, so she will be safe to return back to her home setting as her pain is under better control to await her surgery. INITIAL TREATMENT: Treatment today consisted of the initial evaluation and one unit of functional activity. The patient was left in bed with head of bed elevated, call light within reach, and bed alarm set. MTDD
[2018-01-09] MEDS ORDERED: METHYLPREDNISOLONE 4 MG TAB DOSE PACK(DAY 3-5 2100) PO SCH ×2 (21:00)
== END 2018-01-08 13:34 | disposition home or self-care (01) ==
LOC: ER 12:13 → MED/SURG 12:13
PROVIDERS: ADMIT Family Medicine; ATTEND Family Medicine